=== PATIENT | female | born 1965 | race Hispanic/Latino ===

== ENCOUNTER 2019-09-10 10:45 | Emergency (ER) | payer OTHER ==
[~2019-09-10] VITALS: Ht 154.9 cm; Wt 78.0 kg
--- OUTSIDE RECORDS SUMMARY | 2019-09-10 10:48 | XMS REPORT | Encounter Summary ---
Author Organization Unknown Address [address] [place] [id number] Phone [phone] Care Team Providers Care Sweater Operator Name Role Phone Dr. Rashid Neumann 3 [phone] Reason for Visit diabetes; blood pressure Instructions 1. Type 2 diabetes mellitus glipizide 5 mg tablet metformin 1,000 mg tablet HbA1c (hemoglobin A1c), blood 2. Hypertensive disorder hydrochlorothiazide 12.5 mg capsule lisinopril 40 mg tablet CMP, serum or plasma CBC w/ auto diff 3. Hyperlipidemia atorvastatin 40 mg tablet lipid panel, serum TSH, serum or plasma 4. Body mass index 30+ - obesity ndice de masa corporal: instruccione s de cuidado - [body mass index: care instructions] 5. Depression screening learning about depression 6. Nicotine dependence stopping smoking: care instructions advised to quit smoking 7. Immunization Adacel (Tdap Adolesn/Adult)(PF)2 Lf-(2 .5-5-3-5)-5 Lf/0.5 mL IM syringe Pneumovax 23 25 mcg/0.5 mL injection s yringe Discussion Note: None recorded. Plan of Care Reminders Provider Appointments Est Patient 08/14/2018 1:45PM Rashid Bowden MD Lab HbA1C (Hemoglobin a1C), Blood 07/31/2018 [facility] Laboratory CMP, Serum or Plasma 07/31/2018 [facility] CBC W/ Auto Diff 07/31/2018 [facility] Lipid Panel, Serum 07/31/2018 [facility] TSH, Serum or Plasma 07/31/2018 [facility] Referral None recorded. Procedures None recorded. Surgeries None recorded. Imaging None recorded. Medications Name Start Date atorvastatin 40 mg tablet Take 1 tablet every day by oral route. glipizide 5 mg tablet Take 1 tablet twice a day by oral route. hydrochlorothiazide 12.5 mg capsule Take 1 capsule every day by oral route. lisinopril 40 mg tablet Take 1 tablet every day by oral route. metformin 1,000 mg tablet Take 1 tablet twice a day by oral route. Medications Administered None recorded. Vitals Height Weight BMI Blood Pressure 5 ft 1 in 188.6 lbs 35.6 kg/m2 (1) 140/80 mm[H g] (2) 142/85 mm[Hg] Lab Results None recorded. Allergies Code Code System Name Reaction Severity Status Onset NKDA Problems Name Status Onset Date Source Diabetes Mellitus Active 07/31/2018 Hyperlipidemia Active 07/31/2018 Hypertensive Disorder Active 07/31/2018 Procedures Date Name Performed by Section Information not avai lable Vaccine List Vaccine Type pneumococcal polysaccharide PPV23 07/31/20180.5 mL Tdap 07/31/20180.5 mL Social History Smoking Status Light Tobacco Smoker (1 PPW) Past Encounters 07/31/2018 Type 2 Diabetes Mellitus; Hypertensive Disorder; Hyperlipidemia; Body Mass Index 30+ - Obesity; Depression Screening; Nicotine Dependence; Immunization Rashid Bowden MD: [id number] [place] [address], Ph. History of Present Illness Note:<div>Coming to establish care. Hx of HTN, DM II and HLD. Needs refills. Compliant with meds. Non compliant with diet or exercise. Glucose readings at home 150s-170s fasting. Not checking BPs at home. No side effects with meds. No new concerns.</div> Review of Systems Comprehensive General Adult ROS Reported By: Patient Eyes: Eyes: no vision change Cardiovascular: Cardiovascular: no chest candida n, no palpitations, no lightheadedness Respiratory: Respiratory: no cough, no wh eezing, no shortness of breath Gastrointestinal: Gastrointestinal: no abdomin al pain, no nausea, no vomiting, no constipation, no diarrhea Musculoskeletal: Musculoskeletal: no muscle a ches, no swelling in the extremities Neurologic: Neurologic: no loss of consc iousness, no headaches Psychiatric: Psych: no depression, no alc ohol abuse, no anxiety, no suicidal thoughts Physical Exam General Adult Exam (male) Reported By: Patient Constitutional: General Appearance: healthy- appearing, obese. Level of Distress: NAD. Ambulation: ambulating normally Psychiatric: Insight: good judgement. Men raquel Status: active and alert, normal mood, normal affect. Orientation: to time, to place, to person. Memory: recent memory normal, remote memory normal Eyes: Lids and Conjunctivae: non-i njected, no discharge ENMT: Nose: no sinus tenderness. L ips, Teeth, and Gums: no mouth or lip ulcers. Oropharynx: moist mucous membranes Neck: Neck: supple, trachea midlin e. Thyroid: no enlargement, non-tender Lungs: Auscultation: breath sounds normal Cardiovascular: Heart Auscultation: RRR, nor mal S1, normal S2, no murmurs. Neck vessels: no carotid bruits. Pulses including femoral / pedal: normal throughout Musculoskeletal:: Motor Strength and Tone: nor mal, normal tone. Joints, Bones, and Muscles: normal movement of all extremities. Extremities: no edema Neurologic: Gait and Station: normal gai t. Cranial Nerves: grossly intact Skin: Inspection and palpation: no rash, no lesions
--- OUTSIDE RECORDS SUMMARY | 2019-09-10 10:48 | XMS REPORT ---
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 Role Phone Unavailable Unavailable Payers Payer Name Policy Type Policy Number Effective Date Expiration D ate Problems Condition Name Condition Details Condition Category Status Onset Date Resolution Date Last Treatment Date Treating Clinician Comments Diabetes mellitus Diabetes Mellitus Problem Active 2018-07-31 00:00:00 Hyperlipidemia Hyperlipidemia Problem Active 2018-07-31 00:00:00 Hypertensive disorder Hypertensive Disorder Problem Active 201 01-05-29 00:00:00 Allergies, Adverse Reactions, Alerts Allergy Name Allergy Type Status Severity Reaction(s) Onset Date Inacti ve Date Treating Clinician Comments No Known Allergies DA Active U 2018-07-28 00:00:00 No Known Allergies DA Active U 2018-06-30 00:00:00 No Known Allergies DA Active U 2015-04-19 00:00:00 Medications Ordered Medication Name Filled Medication Name Start Date Stop Da te Current Medication? Ordering Clinician Indication Dosage Frequency Signature (SIG) Comments Components aspirin 81 mg tablet,delayed release Erick e 1 tablet every day by oral route as directed for 90 days. aspirin 81 mg tablet,delayed release Erick e 1 tablet every day by oral route as directed for 90 days. No aspirin 81 mg tablet,delayed release Take 1 tablet every day by oral route as directed for 90 days. atorvastatin 40 mg tablet Take 1 tablet every day by o ral route for 90 days. atorvastatin 40 mg tablet Take 1 tablet every day by oral route for 90 days. No 1 Q1D atorvastatin 4 0 mg tablet Take 1 tablet every day by oral route for 90 days. Basaglar KwikPen U-100 Insulin 100 unit/ mL (3 mL) subcutaneous Inject 25 units every day by subcutaneous route in the morning for 90 days. Basaglar KwikPen U- 100 Insulin 100 unit/mL (3 mL) subcutaneous Inject 25 units every day by subcutaneous route in the morning for 90 days. No 25unit(s) Q1D Awais Schultz U-100 Insulin 100 unit/mL (3 mL) subcutaneous Inject 25 units every day by subcutaneous route in the morning for 90 days. bupropion HCl 150 mg tablet,12 hr sustai jean-pierre-release(smoking deterrent) Take 1 tablet twice a day by oral route for 30 days. one tablet by mouth every morning for 3 days, then one talbet by mouth twice a day bupropion HCl 150 mg tablet,12 hr sustained-release(smoking deterrent) Take 1 tablet twice a day by oral route for 30 days. one tablet by mouth every morning for 3 days, then one talbet by mouth twice a day No 1 BID buprop ion HCl 150 mg tablet,12 hr sustained- release(smoking deterrent) Take 1 tablet twice a day by oral route for 30 days. one tablet by mouth every morning for 3 days, then one talbet by mouth twice a day Easy Touch 31 gauge x 5/16" needle CINTIA INDICADO (LAST S 100 DAYS) Easy Touch 31 gauge x 5/16" needle CINTIA INDICADO (LASTS 100 DAYS) No Easy Touch 31 gauge x 5/16" needle CINTIA INDICADO (LASTS 100 DAYS) glipizide 5 mg tablet Take 1 tablet twice a day by ora l route for 90 days. glipizide 5 mg tablet Take 1 tablet twice a day by oral route for 90 days. No 1 BID glipizide 5 mg tablet Take 1 tablet twice a day by oral route for 90 days. hydrochlorothiazide 12.5 mg capsule Take 1 capsule jason ry day by oral route. hydrochlorothiazide 12.5 mg capsule Take 1 capsule every day by oral route. No 1capsule(s) Q1D hydrochlorothia zide 12.5 mg capsule Take 1 capsule every day by oral route. lisinopril 40 mg tablet Take 1 tablet every day by ora l route. lisinopril 40 mg tablet Take 1 tablet every day by oral route. No 1 Q1D lisinopril 40 mg tablet Take 1 tablet every day by oral route. meloxicam 15 mg tablet Take 1 tablet jason ry day by oral route as needed for 30 days. meloxicam 15 mg tablet Take 1 tablet jason ry day by oral route as needed for 30 days. No 1 Q1D meloxicam 15 mg tablet Take 1 tablet every day by oral route as needed for 30 days. metformin 1,000 mg tablet Take 1 tablet twice a day by oral route for 90 days. metformin 1,000 mg tablet Take 1 tablet twice a day by oral route for 90 days. No 1 BID metformin 1,000 mg tablet Take 1 tablet twice a day by oral route for 90 days. Immunizations Ordered Immunization Name Filled Immunization Name Date Sta tus Comments influenza, injectable, quadrivalent, preservative free influenza, injectable, quadrivalent, preservative free 2019-05-25 19:04:00 Completed pneumococcal polysaccharide PPV23 pneumococcal polysaccharid e PPV23 2018-07-31 16:06:00 Completed Tdap Tdap 2018-07-31 16:06:00 Completed Vital Signs Vital Name Observation Time Observation Value Comments BP Diastolic 2019-09-07 00:00:00 96 mm[Hg] Height 2019-09-07 00:00:00 61 [in_i] BP Systolic 2019-09-07 00:00:00 148 mm[Hg] Body Weight 2019-09-07 00:00:00 172.6 [lb_av] Height 2019-09-06 00:00:00 61 [in_i] BP Diastolic 2019-07-07 00:00:00 84 mm[Hg] Height 2019-07-07 00:00:00 61 [in_i] BP Systolic 2019-07-07 00:00:00 118 mm[Hg] Body Weight 2019-07-07 00:00:00 181 [lb_av] BP Diastolic 2019-05-25 00:00:00 110 mm[Hg] Height 2019-05-25 00:00:00 61 [in_i] BP Systolic 2019-05-25 00:00:00 165 mm[Hg] Body Weight 2019-05-25 00:00:00 184 [lb_av] BP Diastolic 2018-11-11 00:00:00 104 mm[Hg] Height 2018-11-11 00:00:00 61 [in_i] BP Systolic 2018-11-11 00:00:00 151 mm[Hg] Body Weight 2018-11-11 00:00:00 180.6 [lb_av] BP Diastolic 2018-10-29 00:00:00 94 mm[Hg] Height 2018-10-29 00:00:00 61 [in_i] BP Systolic 2018-10-29 00:00:00 159 mm[Hg] Body Weight 2018-10-29 00:00:00 184 [lb_av] BP Diastolic 2018-08-14 00:00:00 82 mm[Hg] Height 2018-08-14 00:00:00 61 [in_i] BP Systolic 2018-08-14 00:00:00 134 mm[Hg] Body Weight 2018-08-14 00:00:00 183.6 [lb_av] BP Diastolic 2018-07-31 00:00:00 80 mm[Hg] Height 2018-07-31 00:00:00 61 [in_i] BP Systolic 2018-07-31 00:00:00 140 mm[Hg] Body Weight 2018-07-31 00:00:00 188.6 [lb_av] Procedures and Interventions Procedure Date / Time Performed Performing Clinici an US, lower extremity 2019-05-25 00:00:00 US, lower extremity 2018-11-11 00:00:00 MAMMO, screening, digital, bilateral 2018-10-29 00:00:00 MAMMO, screening, digital, bilateral 2018-08-14 00:00:00 Section Encounters Start Date/Time End Date/Time Encounter Type Admission Type [facility] Care Department Encounter ID 2019-09-07 00:00:00 2019-09-07 00:00:00 Margarita Castaneda INSURANCE SALESMAN: [address] Grimaldofl, [address] [address], Ph. [facility] [place] [id number] 00:00:00 2019-09-06 00:00:00 Margarita Castaneda INSURANCE SALESMAN: [address] Amy Horne, [address] [address], Ph. [facility] ([facility]) [id number] 00:00:00 2019-07-07 00:00:00 Margarita Castaneda INSURANCE SALESMAN: [address] [place] [address], Ph. [facility] [id number] 2019-05-25 00:00:00 2019-05-25 00:00:00 Lorena Ward MD: [address] [place] [address], Ph. [facility] [id number] 2018-11-11 00:00:00 2018-11-11 00:00:00 Rashid chan MD: [address] [place] [address], Ph. [facility] [id number] 2018-10-29 00:00:00 2018-10-29 00:00:00 Rashid chan MD: [address] [place] [address], Ph. [facility] [id number] 2018-08-14 00:00:00 2018-08-14 00:00:00 Rashid chan MD: [address] [place] [address], Ph. [facility] [id number] 2018-07-31 00:00:00 2018-07-31 00:00:00 Rashid chan MD: [address] [place] [address], Ph. [facility] [id number] Results Test Description Test Time Test Comments Text Results Atomic Results Result Comments GLUBED 2018-07-30 10:57:00 GLUBED (test code = GLUBED) 255 mg/dL 74-106 [facility] [id number] 17:21:00* Test Item Value Reference Range Comments GLUBED (test code = GLUBED) 359 mg/dL 74-106 [facility]f ormed by certified [facility] [id number] 16:32:00* Test Item Value Reference Range Comments GLUBED (test code = GLUBED) 435 mg/dL 74-106 Perf ormed by certified petroleum terminal plant operator at [facility] BASIC METABOLIC [id number] 11:44:00* Test Item Value Reference Range Comments SODIUM (test code = NA) 137 mmol/L 136-145 POTASSIUM (test code = K) 3.7 mmol/L 3.5-5.1 CHLORIDE (test code = CL) 103.0 mmol/L 98-107 CARBON DIOXIDE (test code = CO2) 23.0 mmol/L 21-32 ANION GAP (test code = GAP) 14.7 10-20 GLUCOSE (test code = GLU) 351 mg/dL 74-106 BLOOD UREA NITROGEN (test code = BUN) 33 mg/dL 7-18 GLOMERULAR FILTRATION RATE (test code = GFR) 47 mL/min >=6 0 Estimated GFR by using Modified MDRD formula.Chronic kidney disease is defined as either kidney damageor GFR <60 mL/min/1.73 m2 for >3 months. CREATININE (test code = CREAT) 1.20 mg/dL 0.55-1.02 * *Note change in reference range due to change in reagent. BUN/CREATININE RATIO (test code = BUN/CREA) 27.5 10-2 0 CALCIUM (test code = CA) 9.5 mg/dL 8.5-10.1 HEPATIC FUNCTION [id number] 11:44:00* Test Item Value Reference Range Comments TOTAL PROTEIN (test code = PROT) 8.0 gram/dL 6.4-8.2 ALBUMIN (test code = ALB) 3.6 g/dL 3.4-5.0 GLOBULIN (test code = GLOB) 4.4 gram/dL 2.7-4.2 ALBUMIN/GLOBULIN RATIO (test code = A/G) 0.8 0.75-1. 50 BILIRUBIN TOTAL (test code = BILT) 0.60 mg/dL 0.0-1.0 BILIRUBIN DIRECT (test code = BILD) 0.14 mg/dL 0.0-0.20 SGOT/AST (test code = AST) 14 IUnit/L 15-37 SGPT/ALT (test code = ALT) 18 IUnit/L 12-78 ALKALINE PHOSPHATASE TOTAL (test code = ALKP) 85 IUnit/L 45 -117 Note change in reference range due to change in reagent. [id number] 11:44:00* Test Item Value Reference Range Comments TROPONIN-I (test code = TROPI) <0.015 ng/mL 0-0.045 BASIC METABOLIC [id number] 11:33:00* Test Item Value Reference Range Comments SODIUM (test code = NA) 137 mmol/L 136-145 POTASSIUM (test code = K) 3.7 mmol/L 3.5-5.1 CHLORIDE (test code = CL) 103.0 mmol/L 98-107 CARBON DIOXIDE (test code = CO2) mmol/L 21-32 ANION GAP (test code = GAP) 10-20 GLUCOSE (test code = GLU) mg/dL 74-106 BLOOD UREA NITROGEN (test code = BUN) mg/dL 7-18 GLOMERULAR FILTRATION RATE (test code = GFR) mL/min >=6 0 CREATININE (test code = CREAT) mg/dL 0.55-1.02 BUN/CREATININE RATIO (test code = BUN/CREA) 10-2 0 CALCIUM (test code = CA) mg/dL 8.5-10.1 HEPATIC FUNCTION [id number] 11:33:00* Test Item Value Reference Range Comments TOTAL PROTEIN (test code = PROT) gram/dL 6.4-8.2 ALBUMIN (test code = ALB) g/dL 3.4-5.0 GLOBULIN (test code = GLOB) gram/dL 2.7-4.2 ALBUMIN/GLOBULIN RATIO (test code = A/G) 0.75-1. 50 BILIRUBIN TOTAL (test code = BILT) mg/dL 0.0-1.0 BILIRUBIN DIRECT (test code = BILD) mg/dL 0.0-0.20 SGOT/AST (test code = AST) IUnit/L 15-37 SGPT/ALT (test code = ALT) IUnit/L 12-78 ALKALINE PHOSPHATASE TOTAL (test code = ALKP) IUnit/L 45 -117 [id number] 11:33:00* Test Item Value Reference Range Comments TROPONIN-I (test code = TROPI) ng/mL 0-0.045 URINALYSIS [id number] 11:24:00* Test Item Value Reference Range Comments UA COLOR (test code = COLU) LIGHT YELLOW YELLOW UA APPEARANCE (test code = APPU) CLEAR CLEAR UA GLUCOSE DIPSTICK (test code = DGLUU) >=500 mg/dL NEGATIVE UA BILIRUBIN DIPSTICK (test code = BILU) NEGATIVE mg/dL NEGATIV E UA KETONE DIPSTICK (test code = KETU) Negative mg/dL NEGATIVE UA SPECIFIC GRAVITY (test code = SGU) 1.021 1.001-1.03 5 UA BLOOD DIPSTICK (test code = BRENT) Negative NEGATIVE UA PH DIPSTICK (test code = SKYE) 5.0 5.0-8.0 UA PROTEIN DIPSTICK (test code = PROU) Negative mg/dL NEGATIVE UA UROBILINIOGEN DIPSTICK (test code = URO) NEGATIVE mg/dL NEGA TIVE UA NITRITE DIPSTICK (test code = NATHAN) NEGATIVE NEGATIVE UA LEUKOCYTE ESTERASE W REFLEX (test code = LEUUR) NEGATIVE NEGATIVE UA WBC (test code = WBCU) 0-5 #/HPF 0-5 UA RBC (test code = RBCU) 0-2 #/HPF 0-5 UA EPITHELIAL CELLS (test code = EPIU) FEW per HPF FEW UA BACTERIA (test code = BACU) FEW #/HPF NONE UA MUCUS (test code = MUCU) FEW #/LPF FEW Urine Source? Clean CatchURINALYSIS [id number] 11:23:00* Test Item Value Reference Range Comments UA COLOR (test code = COLU) LIGHT YELLOW YELLOW UA APPEARANCE (test code = APPU) CLEAR CLEAR UA GLUCOSE DIPSTICK (test code = DGLUU) >=500 mg/dL NEGATIVE UA BILIRUBIN DIPSTICK (test code = BILU) NEGATIVE mg/dL NEGATIV E UA KETONE DIPSTICK (test code = KETU) Negative mg/dL NEGATIVE UA SPECIFIC GRAVITY (test code = SGU) 1.021 1.001-1.03 5 UA BLOOD DIPSTICK (test code = BRENT) Negative NEGATIVE UA PH DIPSTICK (test code = SKYE) 5.0 5.0-8.0 UA PROTEIN DIPSTICK (test code = PROU) Negative mg/dL NEGATIVE UA UROBILINIOGEN DIPSTICK (test code = URO) NEGATIVE mg/dL NEGA TIVE UA NITRITE DIPSTICK (test code = NATHAN) NEGATIVE NEGATIVE UA LEUKOCYTE ESTERASE W REFLEX (test code = LEUUR) NEGATIVE NEGATIVE UA WBC (test code = WBCU) per HPF 0-5 Urine Source? Clean CatchURINALYSIS [id number] 11:21:00* Test Item Value Reference Range Comments UA COLOR (test code = COLU) LIGHT YELLOW YELLOW UA APPEARANCE (test code = APPU) CLEAR CLEAR UA BILIRUBIN DIPSTICK (test code = BILU) NEGATIVE mg/dL NEGATIV E UA KETONE DIPSTICK (test code = KETU) Negative mg/dL NEGATIVE UA SPECIFIC GRAVITY (test code = SGU) 1.021 1.001-1.03 5 UA BLOOD DIPSTICK (test code = BRENT) Negative NEGATIVE UA PH DIPSTICK (test code = SKYE) 5.0 5.0-8.0 UA PROTEIN DIPSTICK (test code = PROU) Negative mg/dL NEGATIVE UA UROBILINIOGEN DIPSTICK (test code = URO) NEGATIVE mg/dL NEGA TIVE UA NITRITE DIPSTICK (test code = NATHAN) NEGATIVE NEGATIVE UA LEUKOCYTE ESTERASE W REFLEX (test code = LEUUR) NEGATIVE NEGATIVE UA WBC (test code = WBCU) per HPF 0-5 Urine Source? Clean CatchCBC W/O [id number] 11:17:00* Test Item Value Reference Range Comments WHITE BLOOD CELL (test code = WBC) K/mm3 4.5-12.5 RED BLOOD CELL (test code = RBC) mill/mm3 3.7-5.2 HEMOGLOBIN (test code = HGB) 15.5 gram/dL 11.5-15.5 HEMATOCRIT (test code = HCT) % 36.0-46.0 MEAN CELL VOLUME (test code = MCV) fL 80-98 MEAN CELL HGB (test code = MCH) picogram 27.0-33.0 MEAN CELL HGB CONCETRATION (test code = MCHC) gram/dL 33 .0-36.0 RED CELL DISTRIBUTION WIDTH (test code = RDW) % 11 .6-16.2 PLATELET COUNT (test code = PLT) K/mm3 150-450 MEAN PLATELET VOLUME (test code = MPV) fL 6.7-11.0 CBC W/O [id number] 11:17:00* Test Item Value Reference Range Comments WHITE BLOOD CELL (test code = WBC) 9.6 K/mm3 4.5-12.5 RED BLOOD CELL (test code = RBC) 4.99 mill/mm3 3.7-5.2 HEMOGLOBIN (test code = HGB) 15.5 gram/dL 11.5-15.5 HEMATOCRIT (test code = HCT) 48.2 % 36.0-46.0 MEAN CELL VOLUME (test code = MCV) 96.6 fL 80-98 MEAN CELL HGB (test code = MCH) 31.1 picogram 27.0-33.0 MEAN CELL HGB CONCETRATION (test code = MCHC) 32.2 gram/dL 33 .0-36.0 RED CELL DISTRIBUTION WIDTH (test code = RDW) 12.9 % 11 .6-16.2 PLATELET COUNT (test code = PLT) 234 K/mm3 150-450 MEAN PLATELET VOLUME (test code = MPV) 10.1 fL 6.7-11.0 [id number] 22:42:00* Test Item Value Reference Range Comments GLUBED (test code = GLUBED) 398 mg/dL 74-106 Perf ormed by certified petroleum terminal plant operator at [facility] VENOUS BLOOD [id number] 20:40:00* Test Item Value Reference Range Comments VENOUS BLOOD GAS PH (test code = PHV) 7.39 7.30-7.40 VENOUS BLOOD GAS PCO2 (test code = PCO2V) 43.7 mm Hg 39.0-5 1.0 VENOUS BLOOD GAS PO2 (test code = PO2V) < 44.2 mm Hg 30.0-50. 0 VBG HCO3 (test code = HCO3V) 26.0 mmol/L 17.0-30.0 VBG BASE EXCESS (test code = ESPINOZA) 0.8 mmol/L -5.0-5.0 VENOUS BLOOD GAS O2 SAT. (test code = O2SATV) 73 % 94 -98 VENOUS BLOOD GAS FIO2 (test code = FIO2V) 21.0 PT. HGB (test code = PHGBVBG) 15.7 gram/dL 11.5-15.5 VENOUS BLOOD GAS SITE (test code = SITEV) IVC HEMATOCRIT (test code = HCT/VBG) 46 % 42-52 HGB O2 SAT (test code = HBOSAT) 70.7 % 94.00-98.00 CARBOXYHEMOGLOBIN (test code = HOHGBT) 3.2 %totalHg 0.5-1.5 Results called to and read back by Svetlana 20:40 - 06/30/2018; by LAURA METHEMOGLOBIN (test code = METHGB) 0.4 % 0.0-1.50 URINALYSIS [id number] 20:38:00* Test Item Value Reference Range Comments UA COLOR (test code = COLU) STRAW YELLOW UA APPEARANCE (test code = APPU) CLEAR CLEAR UA GLUCOSE DIPSTICK (test code = DGLUU) >=500 mg/dL NEGATIVE UA BILIRUBIN DIPSTICK (test code = BILU) NEGATIVE mg/dL NEGATIV E UA KETONE DIPSTICK (test code = KETU) 5 (Trace) mg/dL NEGATIVE UA SPECIFIC GRAVITY (test code = SGU) 1.026 1.001-1.03 5 UA BLOOD DIPSTICK (test code = BRENT) Negative NEGATIVE UA PH DIPSTICK (test code = SKYE) 6.0 5.0-8.0 UA PROTEIN DIPSTICK (test code = PROU) Negative mg/dL NEGATIVE UA UROBILINIOGEN DIPSTICK (test code = URO) NEGATIVE mg/dL NEGA TIVE UA NITRITE DIPSTICK (test code = NATHAN) NEGATIVE NEGATIVE UA LEUKOCYTE ESTERASE W REFLEX (test code = LEUUR) NEGATIVE NEGATIVE UA WBC (test code = WBCU) 0-5 #/HPF 0-5 UA RBC (test code = RBCU) 0-2 #/HPF 0-5 UA EPITHELIAL CELLS (test code = EPIU) FEW per HPF FEW UA BACTERIA (test code = BACU) NONE SEEN #/HPF NONE Urine Source? Clean Catch- XR CHEST 1 [id number] 19:46:00 FAX: Karen Alejo MD [place]: B St: REG Name: GLENNA GRIFFITH [facility] : 10/12/18 68 Age/S: 52/F [place] Unit #: [id number] Loc: [place] [address] Phys: Karen Alejo MD Acct: [id number] Dis Date: Status: REG ER PHONE #: [phone] Exam Date: 06/30/2018 1840 FAX #: [phone] Reason: CHEST PAIN EXAMS: CPT CODE: [id number] XR CHEST 1 V [id number] REASON FOR EXAM: CHEST JAYESH N Exam Order Date: 06/30/2018 6:32 PM Ordering M.D.: Karen Aljeo MD PROCEDURE: - XR CHEST 1 V COMPARIS ON: AP chest x-ray April 19, 2015 FINDINGS: The lungs a re clear. There is no pleural effusion. Cardiomediastinal silhouette is n ormal in size for technique. Pulmonary vasculature is within normal limit s Degenerative changes are seen throughout the visualized spine. Vis ualized upper abdomen is grossly unremarkable. IMPRESSIO N: No acute cardiopulmonary process. at 1946 Reported and signed by: Bettie Benito MD CC: Karen Alejo MD Technologist: Ignacia Rodriguez Trnscrd Date/Time/By: 06/30/2018 (1945) : By: [email or web address] Orig Print D /T: S: 06/30/2018 (1948) PAGE 1 S igned Report BASIC METABOLIC [id number] 19:06:00* Test Item Value Reference Range Comments SODIUM (test code = NA) 132 mmol/L 136-145 POTASSIUM (test code = K) 4.5 mmol/L 3.5-5.1 CHLORIDE (test code = CL) 96.0 mmol/L 98-107 CARBON DIOXIDE (test code = CO2) 29.0 mmol/L 21-32 ANION GAP (test code = GAP) 11.5 10-20 GLUCOSE (test code = GLU) 642 mg/dL 74-106 Result s called to by V.LAB.SPR 06/30/18 1906Critical results verified and read back by Nurse? Y BLOOD UREA NITROGEN (test code = BUN) 28 mg/dL 7-18 GLOMERULAR FILTRATION RATE (test code = GFR) 40 mL/min >=6 0 Estimated GFR by using Modified MDRD formula.Chronic kidney disease is defined as either kidney damageor GFR <60 mL/min/1.73 m2 for >3 months. CREATININE (test code = CREAT) 1.40 mg/dL 0.55-1.02 * *Note change in reference range due to change in reagent. BUN/CREATININE RATIO (test code = BUN/CREA) 20.0 10-2 0 CALCIUM (test code = CA) 9.0 mg/dL 8.5-10.1 [id number] 19:06:00* Test Item Value Reference Range Comments TROPONIN-I (test code = TROPI) <0.015 ng/mL 0-0.045 BASIC METABOLIC [id number] 18:57:00* Test Item Value Reference Range Comments SODIUM (test code = NA) 132 mmol/L 136-145 POTASSIUM (test code = K) 4.5 mmol/L 3.5-5.1 CHLORIDE (test code = CL) 96.0 mmol/L 98-107 CARBON DIOXIDE (test code = CO2) 29.0 mmol/L 21-32 ANION GAP (test code = GAP) 11.5 10-20 GLUCOSE (test code = GLU) mg/dL 74-106 BLOOD UREA NITROGEN (test code = BUN) 28 mg/dL 7-18 GLOMERULAR FILTRATION RATE (test code = GFR) 40 mL/min >=6 0 Estimated GFR by using Modified MDRD formula.Chronic kidney disease is defined as either kidney damageor GFR <60 mL/min/1.73 m2 for >3 months. CREATININE (test code = CREAT) 1.40 mg/dL 0.55-1.02 * *Note change in reference range due to change in reagent. BUN/CREATININE RATIO (test code = BUN/CREA) 20.0 10-2 0 CALCIUM (test code = CA) 9.0 mg/dL 8.5-10.1 [id number] 18:57:00* Test Item Value Reference Range Comments TROPONIN-I (test code = TROPI) <0.015 ng/mL 0-0.045 CBC W/O [id number] 18:47:00* Test Item Value Reference Range Comments WHITE BLOOD CELL (test code = WBC) 8.3 K/mm3 4.5-12.5 RED BLOOD CELL (test code = RBC) 4.81 mill/mm3 3.7-5.2 HEMOGLOBIN (test code = HGB) 15.6 gram/dL 11.5-15.5 HEMATOCRIT (test code = HCT) 45.5 % 36.0-46.0 MEAN CELL VOLUME (test code = MCV) 94.6 fL 80-98 MEAN CELL HGB (test code = MCH) 32.4 picogram 27.0-33.0 MEAN CELL HGB CONCETRATION (test code = MCHC) 34.3 gram/dL 33 .0-36.0 RED CELL DISTRIBUTION WIDTH (test code = RDW) 12.2 % 11 .6-16.2 PLATELET COUNT (test code = PLT) 268 K/mm3 150-450 MEAN PLATELET VOLUME (test code = MPV) 11.1 fL 6.7-11.0 CBC W/O [id number] 18:46:00* Test Item Value Reference Range Comments WHITE BLOOD CELL (test code = WBC) K/mm3 4.5-12.5 RED BLOOD CELL (test code = RBC) mill/mm3 3.7-5.2 HEMOGLOBIN (test code = HGB) gram/dL 11.5-15.5 HEMATOCRIT (test code = HCT) 45.5 % 36.0-46.0 MEAN CELL VOLUME (test code = MCV) fL 80-98 MEAN CELL HGB (test code = MCH) picogram 27.0-33.0 MEAN CELL HGB CONCETRATION (test code = MCHC) gram/dL 33 .0-36.0 RED CELL DISTRIBUTION WIDTH (test code = RDW) % 11 .6-16.2 PLATELET COUNT (test code = PLT) K/mm3 150-450 MEAN PLATELET VOLUME (test code = MPV) fL 6.7-11.0 BASIC METABOLIC [id number] 18:45:00* Test Item Value Reference Range Comments SODIUM (test code = NA) 132 mmol/L 136-145 POTASSIUM (test code = K) 4.5 mmol/L 3.5-5.1 CHLORIDE (test code = CL) 96.0 mmol/L 98-107 CARBON DIOXIDE (test code = CO2) mmol/L 21-32 ANION GAP (test code = GAP) 10-20 GLUCOSE (test code = GLU) mg/dL 74-106 BLOOD UREA NITROGEN (test code = BUN) mg/dL 7-18 GLOMERULAR FILTRATION RATE (test code = GFR) mL/min >=6 0 CREATININE (test code = CREAT) mg/dL 0.55-1.02 BUN/CREATININE RATIO (test code = BUN/CREA) 10-2 0 CALCIUM (test code = CA) mg/dL 8.5-10.1 [id number] 18:45:00* Test Item Value Reference Range Comments TROPONIN-I (test code = TROPI) ng/mL 0-0.045
--- OUTSIDE RECORDS SUMMARY | 2019-09-10 10:48 | XMS REPORT | Encounter Summary ---
Author Organization Unknown Address [address] [place] [id number] Phone [phone] Care Team Providers Care Wire Rigger Name Role Phone Dr. Rashid Neumann 3 [phone] Reason for Visit diabetic foot exam; lab follow-up Instructions 1. Diabetes mellitus diabetic ophthalmology referral - [facility] SPEAKING PLEASE CALL PATIENT AND SCHEDULE HER AN APPOINTMENT. PLEASE FAX NOTES TO [phone]. microalbumin:creatinine ratio, urine Basaglar KwikPen U-100 Insulin 100 uni t/mL (3 mL) subcutaneous 2. Hyperlipidemia colesterol alto: instrucciones de cuid ado - [high cholesterol: care instructions] aspirin 81 mg tablet,delayed release 3. Body mass index 30+ - obesity aprenda acerca del peso saludable - [l earning about healthy weight] ndice de masa corporal: instruccione s de cuidado - [body mass index: care instructions] 4. Screening for malignant neoplasm of c olon colonoscopy referral - KHMER SPEAKSINTIA Tucker PLEASE CALL PATIENT AND SCHEDULE HER AN APPOINTMENT. PLEASE FAX NOTES TO [phone]. fecal occult blood, stool 5. Screening for malignant neoplasm of b reast MAMMO, screening, digital, bilateral - K[facility]ER SPEAKING PLEASE CALL PATIENT AND SCHEDULE HER AN APPOINTMENT. PLEASE FAX RESULTS TO [phone]. 6. Benign essential hypertension Discussion Note: None recorded. Plan of Care Reminders Provider Appointments Est Patient 09/17/2018 1:30PM Rashid Bowden MD Lab Fecal Occult Blood, Stool 08/14/2018 [facility] Laboratory Microalbumin:creatinine Ratio, Urine 08/14/2018 [facility] Laboratory Referral Colonoscopy Referral 08/14/2018 [facility] Gastroenterology Diabetic Ophthalmology Referral 08/14/2018 Betzy Cruz MD Procedures None recorded. Surgeries None recorded. Imaging MAMMO, Screening, Digital, Bilateral 08/14/2018 [facility] (Imaging Scheduling) Medications Name Start Date aspirin 81 mg tablet,delayed release Take 1 tablet every day by oral route as directed for 30 days. atorvastatin 40 mg tablet Take 1 tablet every day by oral route. Basaglar MohitPen U-100 Insulin 100 unit/ mL (3 mL) subcutaneous Inject 15 units every day by subcutaneous route as directed for 30 days. glipizide 5 mg tablet Take 1 [...] BMI Blood Pressure 5 ft 1 in 183.6 lbs 34.7 kg/m2 134/82 mm[Hg] Lab Results Date Name Specimen Result Interpretation Description Value Range Status Address 07/31/2018 Lipid Panel, Serum High Cholesterol, Tota l 215 mg/dL <200 mg/dL [facility]: [address] [place] [address] [place] Low HDL Cholesterol 44 mg/dL >50 mg/dL [place] Laboratory: [address] [place] [address] [place] High Triglycerides 349 mg/dL <150 mg/dL [place] Laboratory: [address] [place] [address] [place] High LDL-cholesterol 121 mg/dL (calc) [facility] Laboratory: [address] [place] [address] [place] Normal Chol/hdlc Ratio 4.9 (calc) <5.0 (clark c) Final [facility] Laboratory: [address] [place] [address] [place] High Non HDL Cholesterol 171 mg/dL (calc) <130 mg/dL (calc) Final [facility] Laboratory: [address] [place] 07/31/2018 HbA1C (Hemoglobin a1C), Blood High Hemoglobin a1C 13.4 % of total HGB <5.7 % of total HGB [facility] [address] [place] [address] [place] EAG (mg/dL) 338 (calc) [facility] Laboratory: [address] [place] [address] [place] EAG (mmol/L) 18.7 (calc) [facility] Laboratory: [address] 07/31/2018 CBC W/ Auto Diff Normal White Blood Cell Co unt 7.3 thousand/uL 3.8-10.8 thousand/uL Final [facility]: [address] Normal Red Blood Cell Count 4.37 mill ion/uL 3.80-5.10 million/uL Final [facility] Laboratory: [address] [place] Normal Hemoglobin 14.3 g/dL 11.7-15.5 g/dL Final [facility] Laboratory: [address] [place] Normal Hematocrit 41.8 % 35.0-45.0 % Final [facility] Laboratory: [address] [place] Normal Mcv 95.7 fL 80.0-100.0 fL Final [facility] Laboratory: [address] [place] Normal Mch 32.7 pg 27.0-33.0 pg Final [facility] Laboratory: [address] [place] Normal Mchc 34.2 g/dL 32.0-36.0 g/dL Final [facility] Laboratory: [address] [place] Normal Rdw 12.2 % 11.0-15.0 % Final [facility] Laboratory: [address] [place] Normal Platelet Count 227 thousand/uL 140-4 00 thousand/uL Final [facility] Laboratory: [address] [place] Normal Mpv 10.8 fL 7.5-12.5 fL Final [facility] Laboratory: [address] [place] Normal Absolute Neutrophils 4592 cells/uL 1 500-7800 cells/uL Final [facility] Laboratory: [address] [place] Normal Absolute Lymphocytes 2227 cells/uL 8 50-3900 cells/uL Final [facility] Laboratory: [address] [place] Normal Absolute Monocytes 277 cells/uL 200- 950 cells/uL Final [facility] Laboratory: [address] [place] Normal Absolute Eosinophils 168 cells/uL 15 -500 cells/uL Final [facility] Laboratory: [address] [place] Normal Absolute Basophils 37 cells/uL 0-200 cells/uL Final [facility] Laboratory: [address] [place] Normal Neutrophils 62.9 % Final [facility] Laboratory: [address], [place] Normal Lymphocytes 30.5 % Final [facility] Laboratory: [address], [place] Normal Monocytes 3.8 % Final [facility] Laboratory: [address], [place] Normal Eosinophils 2.3 % Final [facility] Laboratory: [address], [place] Normal Basophils 0.5 % Final [facility] Laboratory: [address], [place] 07/31/2018 CMP, Serum or Plasma High Glucose 292 mg/dL 65-99 mg/dL Final [facility] Laboratory: [address], [place] Normal Urea Nitrogen (BUN) 22 mg/dL 7-25 mg /dL Final [facility] Laboratory: [address] [place] [address] High Creatinine 1.07 mg/dL 0.50-1.05 mg/d L Final [facility] Laboratory: [address] Normal eGFR Non-afr. Haitian 60 mL/m in/1.73m2 > or = 60 mL/min/1.73m2 Final [facility]: [address] [facility] [place] Normal eGFR 70 mL/mi n/1.73m2 > or = 60 mL/min/1.73m2 Final [facility] Laboratory: [address] [place] [address] Normal BUN/creatinine Ratio 21 (calc) 6-22 (calc) Final [facility]: [address] [facility] Normal Sodium 138 mmol/L 135-146 mmol/L [facility] Laboratory: [address] Normal Potassium 4.4 mmol/L 3.5-5.3 mmol/L Final [facility] Laboratory: [address] [facility] Normal Chloride 101 mmol/L 98-110 mmol/L [facility] Laboratory: [address] [facility] Normal Carbon Dioxide 27 mmol/L 20-32 mmol/ L Final [facility] Laboratory: [address] Normal Calcium 10.0 mg/dL 8.6-10.4 mg/dL [facility] Laboratory: [address] [place] Normal Protein, Total 6.7 g/dL 6.1-8.1 g/dL Final [facility] Laboratory: [address] [place] Normal Albumin 3.9 g/dL 3.6-5.1 g/dL Final [facility] Laboratory: [address] [place] Normal Globulin 2.8 g/dL (calc) 1.9-3.7 g/d L (calc) Final [facility] Laboratory: [address] [facility] Normal Albumin/globulin Ratio 1.4 (calc) 1. 0-2.5 (calc) Final [facility] Laboratory: [address] [place] Normal Bilirubin, Total 0.4 mg/dL 0.2-1.2 m g/dL Final [facility] Laboratory: [address] [facility] Normal Alkaline Phosphatase 78 U/L 33-130 U /L Final [facility] Laboratory: [address] [facility] Normal Ast 10 U/L 10-35 U/L Final [facility] Laboratory: [address] [facility] Normal Alt 9 U/L 6-29 U/L Final [facility] Laboratory: [address] [facility] 07/31/2018 TSH, Serum or Plasma Normal Tsh 1.25 mIU/L Final [facility] Laboratory: [address] [facility] Allergies Code Code System Name Reaction Severity Status Onset NKDA Problems Name Status Onset Date Source Diabetes Mellitus Active 07/31/2018 Hyperlipidemia Active 07/31/2018 Hypertensive Disorder Active 07/31/2018 Procedures Date Name Performed by Section Information not avai lable 08/14/2018 MAMMO, Screening, Digital, Bilateral Pat [facility] (Imaging Scheduling) [address] [place] [address] (Work Place) Vaccine List Vaccine Type pneumococcal polysaccharide PPV23 07/31/20180.5 mL Tdap 07/31/20180.5 mL Social History Smoking Status Light Tobacco Smoker (1 PPW) Past Encounters 08/14/2018 Diabetes Mellitus; Hyperlipidemia; Body Mass Index 30+ - Obesity; Screening for Malignant Neoplasm of Colon; Screening for Malignant Neoplasm of Breast; Benign Essential Hypertension Rashid Bowden MD: [address] [place] [address], Ph. 07/31/2018 Type 2 Diabetes Mellitus; Hypertensive Disorder; Hyperlipidemia; Body Mass Index 30+ - Obesity; Depression Screening; Nicotine Dependence; Immunization Rashid Bowden MD: [address] [place] [address], Ph. History of Present Illness Note:Coming to discuss lab results. Non compliant with meds (pt forgets to take the metformin, glipizide and atorvastatin most of the days). Non compliant with diet or exercise. Review of Systems Comprehensive General Adult ROS [...]
--- OUTSIDE RECORDS SUMMARY | 2019-09-10 10:49 | XMS REPORT | Encounter Summary ---
Author Organization Unknown Address [address] [place] [address] Phone [phone] Care Team Providers Care Link Cutter Name Role Phone Dr. Rashid Neumann 3 [phone] Betzy Cruz MD 111 [phone] Reason for Visit lab follow-up; cough; mass Instructions 1. Diabetes mellitus microalbumin:creatinine ratio, urine 2. Hyperlipidemia colesterol alto: instrucciones de cuid ado - [high cholesterol: care instructions] 3. Benign essential hypertension 4. Localized swelling, mass and lump, lo wer limb US, lower extremity - soft tissue u/s. *Please call the patient and schedule* 5. Upper respiratory infection Zithromax Z-Zack 250 mg tablet Cheratussin AC 10 mg-100 mg/5 mL oral liquid 6. Body mass index 30+ - obesity aprenda acerca del peso saludable - [l earning about healthy weight] ndice de masa corporal: instruccione s de cuidado - [body mass index: care instructions] Discussion Note: None recorded. Plan of Care Reminders Provider Appointments Est Patient 02/11/2019 11:15AM Rashid Bowden MD Lab Microalbumin:creatinine Ratio, Urine 11/11/2018 [facility] Laboratory Referral None recorded. Procedures None recorded. Surgeries None recorded. Imaging US, Lower Extremity 11/11/2018 [facility] (Imaging) Medications Name Start Date aspirin 81 mg tablet,delayed release Take 1 tablet every day by oral route as directed for 90 days. atorvastatin 40 mg tablet Take 1 tablet every day by oral route. Basaglar KwikPen U-100 Insulin 100 unit/ mL (3 mL) subcutaneous Inject 15 units every day by subcutaneous route as directed for 30 days. Cheratussin AC 10 mg-100 mg/5 mL oral li quid Take 10 mL every 6-8 hours by oral route as needed for 5 days. glipizide 5 mg tablet Take 1 [...] tablet twice a day by oral route. Zithromax Z-Zack 250 mg tablet TAKE 2 TABLETS (500 MG) BY ORAL ROUTE ONCE DAILY FOR 1 DAY THEN 1 TABLET (250 MG) BY ORAL ROUTE ONCE DAILY FOR 4 DAYS Medications Administered None recorded. Vitals Height Weight BMI Blood Pressure 5 ft 1 in 180.6 lbs 34.1 kg/m2 (1) 151/104 mm[ Hg] (2) 138/95 mm[Hg] Lab Results Date Name Specimen Result Interpretation Description Value Range Status Address 10/29/2018 CMP, Serum or Plasma Alt 8 U/L 0-55 U /L [facility] Laboratory: [address] Ast 11 U/L 5-34 U/L Final [facility] Laboratory: [address] Bun 16.6 mg/dL 9.8-25.0 mg/dL Final [facility] Laboratory: [address] Alk Phos 103 unit/L 40-150 unit/L Fi nal [facility] Laboratory: [address] [facility] [place] High Glucose 348 mg/dL 70-99 mg/dL [facility] Laboratory: [address] [place] [address] Albumin 3.4 g/dL 3.4-5.1 g/dL Final [facility] Laboratory: [address] [place] [address] Creatinine 1.03 mg/dL 0.57-1.11 mg/d L Final [facility] Laboratory: [address] [facility] [place] ABNORMAL eGFR Non- 56 mL/m in/1.73m2 Final [facility] Laboratory: [address] [place] [address] [place] Total Bilirubin 0.4 mg/dL 0.2-1.2 mg /dL [facility] Laboratory: [address] [place] [address] eGFR - >60 mL/min/1 .73m2 [facility] Laboratory: [address] [place] [address] Sodium 137 mEq/L 135-145 mEq/L [facility] Laboratory: [address] [place] [address], [place] Potassium 3.7 mEq/L 3.5-5.1 mEq/L [facility] Laboratory: [address] [place] [address], [place] Chloride 104 mmol/L 98-110 mmol/L [facility] Laboratory: [address] [place] [address], [place] Total Protein 6.8 g/dL 6.1-8.2 g/dL [facility] Laboratory: [address] [place] [address], [place] Calcium 9.1 mg/dL 8.6-10.4 mg/dL Fin [facility] Laboratory: [address] [place] [address], [place] Co2 22.3 mmol/L 20.0-32.0 mmol/L [facility] Laboratory: [address] [place] [address], [place] Anion Gap 11 calc Final [facility] Laboratory: [address] [place] [address], [place] 10/29/2018 Lipid Panel, Serum Low Hdl 36 mg/dL 50-0 m g/dL Final [facility] Laboratory: [address] High Triglyceride 411 mg/dL 0-150 mg/dL [facility] Laboratory: [address] VLDL (Calculated) 82 mg/dL [facility] Laboratory: [address] cholesterol/HDL Ratio 5.4 mg/dL [facility] Laboratory: [address] [place] [address], [place] non-HDL Cholesterol (Calculated) 157 mg/dL 0-160 mg/dL [facility] Laboratory: [address] Cholesterol 193 mg/dL 0-200 mg/dL [facility] Laboratory: [address] [place] [address], [place] Low LDL (Calculated) see comment mg/dL 0 -130 mg/dL Final [facility] Laboratory: [address] [place], [place] 10/29/2018 HbA1C (Hemoglobin a1C), Blood High A1C W/ eag 12.4 % 1.0-5.7 % [facility] Laboratory: [address] [place] [address], [place] Average Blood Glucose 309 mg/dL [facility] Laboratory: [address] [place] [address], [place] Allergies Code Code System Name Reaction Severity Status Onset NKDA Problems Name Status Onset Date Source Diabetes Mellitus Active 07/31/2018 Hyperlipidemia Active 07/31/2018 Hypertensive Disorder Active 07/31/2018 Procedures Date Name Performed by Section Information not avai lable 10/29/2018 MAMMO, Screening, Digital, Bilateral [facility] [place] [address] [place] [address] (Work Place) 11/11/2018 [place], Lower Extremity [facility] [address] (Imaging) [address] [place] [address] (Work Place) Vaccine List Vaccine Type pneumococcal polysaccharide PPV23 07/31/20180.5 mL Tdap 07/31/20180.5 mL Social History Smoking Status Light Tobacco Smoker (1 PPW) Past Encounters 11/11/2018 Diabetes Mellitus; Hyperlipidemia; Benign Essential Hypertension; Localized Swelling, Mass and Lump, Lower Limb; Upper Respiratory Infection; Body Mass Index 30+ - Obesity Rashid Bowden MD: [address] [place] [address], Ph. 10/29/2018 Hypertensive Disorder; Diabetes Mellitus; Hyperlipidemia; Degenerative Joint Disease Involving Multiple Joints; Screening for Malignant Neoplasm of Breast; Screening for Malignant Neoplasm of Colon Rashid Bowden MD: [address] [place] [address], Ph. History of Present Illness Note:Coming to discuss lab results. Not taking metformin and glipizide every day.<div>Dry cough since 2 weeks ago. Denies runny nose, nasal congestion, sore throat, sob, wheezing or chest pain.</div> Review of Systems:ROS as noted in the HPI Review of Systems Comprehensive General Adult ROS Reported By: Patient Constitutional: Constitutional: no fever Eyes: Eyes: no vision change ENMT: Ears: no ear pain. Nose: no sinus problems. Mouth/Throat: no sore throat Cardiovascular: Cardiovascular: no chest candida n, no palpitations, no lightheadedness Respiratory: Respiratory: no wheezing, no shortness of breath, cough Gastrointestinal: Gastrointestinal: no abdomin al pain, no nausea, no vomiting, no constipation, no diarrhea Musculoskeletal: Musculoskeletal: no muscle a ches, no swelling in the extremities Integumentary: Skin: no rashes, growths/les ions Neurologic: Neurologic: no loss of consc iousness, no headaches Psychiatric: Psych: no depression, no alc ohol abuse, no anxiety, no suicidal thoughts Endocrine: Endocrine: no fatigue Physical Exam General Adult Exam (male) Reported By: Patient Constitutional: General Appearance: healthy- appearing, obese. Level of Distress: NAD. Ambulation: ambulating normally Psychiatric: Insight: good judgement. Men raquel Status: active and alert, normal mood, normal affect. Orientation: to time, to place, to person. Memory: recent memory normal, remote memory normal Eyes: Lids and Conjunctivae: non-i njected, no discharge ENMT: Ears: TMs clear. Nose: no si nus tenderness, nares non-patent, nasal discharge, post nasal drip. Lips, Teeth, and Gums: no mouth or lip ulcers. Oropharynx: moist mucous membranes, no exudates, erythema Neck: Neck: supple, trachea midlin e. Lymph Nodes: no cervical LAD. Thyroid: no enlargement, non-tender Lungs: Respiratory effort: no dyspn ea. Auscultation: breath sounds normal Cardiovascular: Heart Auscultation: RRR, nor mal S1, normal S2, no murmurs. Neck vessels: no carotid bruits Abdomen: Inspection and Palpation: so ft, non-distended, no tenderness, no guarding, no rebound tenderness, no masses Musculoskeletal:: Motor Strength and Tone: nor mal, normal tone. Joints, Bones, and Muscles: normal movement of all extremities. Extremities: no edema Neurologic: Gait and Station: normal gai t. Cranial Nerves: grossly intact Skin: Inspection and palpation: ; Mass at the level of the R achilles tendon insertion in the heel. Hard, mobile, non tender, 2 cms in diameter approximately
--- OUTSIDE RECORDS SUMMARY | 2019-09-10 10:49 | XMS REPORT | Encounter Summary ---
Author Organization Unknown Address [address] [place] [address] Phone [phone] Care Team Providers Care Kitchen Clerk Name Role Phone Dr. Lorena Ward 3 [phone] Betzy Cruz MD 111 [phone] Reason for Visit other - see typed reason Instructions 1. Upper respiratory infection Zithromax Z-Zack 250 mg tablet infeccin de las vAS respiratorias altas (resfriado): instrucciones de cuidado - [upper respiratory infection (cold): care instructions] Bromfed DM 2 mg-30 mg-10 mg/5 mL oral syrup 2. Exposure to Influenzavirus 3. Body mass index 30+ - obesity aprenda acerca del peso saludable - [l earning about healthy weight] ndice de masa corporal: instruccione s de cuidado - [body mass index: care instructions] 4. Diabetes mellitus 5. Smoker stopping smoking: care instructions advised to quit smoking 6. Vaccine refused by patient Discussion Note: None recorded. Plan of Care Patient Instructions Please return to the office for diabetes bloodwork Reminders Provider Appointments Return to Office on or around 07/07/2019 Margarita Castaneda NP Return to Office on or around 07/21/2019 Margarita Castaneda NP Lab None recorded. Referral None recorded. Procedures None recorded. Surgeries None recorded. Imaging None recorded. Medications Name Start Date aspirin 81 mg tablet,delayed release Take 1 tablet every day by oral route as directed for 90 days. atorvastatin 40 mg tablet Take 1 tablet every day by oral route for 90 days. Basaglar KwikPen U-100 Insulin 100 unit/ mL (3 mL) subcutaneous Inject 25 units every day by subcutaneous route in the morning for 90 days. Bromfed DM 2 mg-30 mg-10 mg/5 mL oral sy rup Take 10 mL every 4-6 hours by oral route as needed for 5 days. bupropion HCl 150 mg tablet,12 hr [...] day by oral route for 90 days. Zithromax Z-Zack 250 mg tablet TAKE 2 TABLETS (500 MG) BY ORAL ROUTE ONCE DAILY FOR 1 DAY THEN 1 TABLET (250 MG) BY ORAL ROUTE ONCE DAILY FOR 4 DAYS Medications Administered None recorded. Vitals Height Weight BMI Blood Pressure 5 ft 1 in 181 lbs 34.2 kg/m2 118/84 mm[Hg] Results Lab Results None recorded. Allergies Code Code System Name Reaction Severity Status Onset NKDA Problems Name Status Onset Date Source Diabetes Mellitus Active 07/31/2018 Hyperlipidemia Active 07/31/2018 Hypertensive Disorder Active 07/31/2018 Procedures Date Name Performed by Section Information not avai lable Vaccine List Vaccine Type influenza, injectable, quadrivalent, pre servative free 05/25/20190.5 mL pneumococcal polysaccharide PPV23 07/31/20180.5 mL Tdap 07/31/20180.5 mL Social History Tobacco Smoking Status Light Tobacco Smoker (1 PPW) Past Encounters 07/07/2019 Upper Respiratory Infection; Exposure to Influenzavirus; Body Mass Index 30+ - Obesity; Diabetes Mellitus; Smoker; Vaccine Refused by Patient Margarita Castaneda, ASSIGNMENT DESK ASSISTANT: [address] [place] [address], Ph. History of Present Illness Upper Respiratory Symptoms Reported By: Patient Upper Respiratory Symptoms: Location: throat. Quality: congested, dry cough, hurts to swallow. Severity: pain level 5/10. Duration: ; 7 days. Onset/Timing: gradual. Context: no foreign travel, sick contact, smoker. Modifying Factors: OTC medication. Associated Symptoms: no sputum production, no shortness of breath, no wheezing, no change in number of pillows needed to sleep at night, no sweats, no fever, no significant weight gain, no significant weight loss, no vomiting, no diarrhea, no rash, no nausea, fatigue, morning cough, sore throat; white sputum, horse voice Note:CLINT Jo translated Review of Systems Comprehensive General Adult ROS Reported By: Patient Constitutional: Constitutional: no fever Eyes: Eyes: no vision change, no i rritation ENMT: Ears: no ear pain. Nose: no nose problems, no sinus problems. Mouth/Throat: sore throat Cardiovascular: Cardiovascular: no chest candida n Respiratory: Respiratory: no wheezing, no shortness of breath, cough Gastrointestinal: Gastrointestinal: no abdomin al pain, no nausea, no vomiting Genitourinary: Genitourinary: no difficulty urinating Musculoskeletal: Musculoskeletal: no muscle a ches, no arthralgias/joint pain Integumentary: Skin: no rashes Neurologic: Neurologic: no weakness, no numbness Psychiatric: Psych: no depression, no anx iety Endocrine: Endocrine: fatigue Hematologic/Lymphatic: Hematologic/Lymphatic no swo llen glands Allergic/Immunologic: Allergy/Immunologic: no sinu s pressure, runny nose Physical Exam General Adult Exam (Female) Reported By: Patient Constitutional: General Appearance: healthy- appearing, well-developed, obese. Level of Distress: mild distress. Ambulation: ambulating normally Psychiatric: Insight: good judgement. Men raquel Status: active and alert, normal affect. Orientation: to time, to place, to person Eyes: Lids and Conjunctivae: non-i njected, no discharge. Pupils: PERRLA. EOM: EOMI. Sclerae: non-icteric. Vision: acuity grossly intact ENMT: Ears: no lesions on external ear, EACs clear, TMs clear, TM mobility normal. Hearing: no hearing loss. Nose: nares patent, no sinus tenderness. Lips, Teeth, and Gums: no mouth or lip ulcers. Oropharynx: moist mucous membranes, no exudates, tonsils not enlarged, erythema; horseness Neck: Neck: supple, FROM. Lymph No rimma: no cervical LAD. Thyroid: no enlargement Lungs: Respiratory effort: no dyspn ea. Percussion: no dullness, flatness, or hyperresonance Cardiovascular: Heart Auscultation: RRR. Pul ses including femoral / pedal: normal throughout Abdomen: Bowel Sounds: normal. Inspec tion and Palpation: soft, non-distended, no tenderness, no CVA tenderness. Liver: non-tender. Spleen: non-tender Musculoskeletal:: Motor Strength and Tone: nor mal motor strength, normal tone. Joints, Bones, and Muscles: normal movement of all extremities. Extremities: no cyanosis, no edema Neurologic: Gait and Station: normal gai t, normal station. Cranial Nerves: grossly intact. Sensation: grossly intact Skin: Inspection and palpation: no rash, good turgor. Nails: normal
--- OUTSIDE RECORDS SUMMARY | 2019-09-10 10:49 | XMS REPORT | Encounter Summary ---
Author Organization Unknown Address [address] [place] [address] Phone [phone] Care Team Providers Care After School Program Director Name Role Phone Dr. Rashid Neumann 3 [phone] Reason for Visit Hyperlipidemia; Diabetes mellitus; Hyper tensive disorder Instructions 1. Hypertensive disorder hydrochlorothiazide 12.5 mg capsule lisinopril 40 mg tablet 2. Diabetes mellitus Basaglar KwikPen U-100 Insulin 100 uni t/mL (3 mL) subcutaneous glipizide 5 mg tablet metformin 1,000 mg tablet HbA1c (hemoglobin A1c), blood 3. Hyperlipidemia colesterol alto: instrucciones de cuid ado - [high cholesterol: care instructions] aspirin 81 mg tablet,delayed release atorvastatin 40 mg tablet CMP, serum or plasma lipid panel, serum 4. Degenerative joint disease involving multiple joints meloxicam 15 mg tablet 5. Screening for malignant neoplasm of b reast MAMMO, screening, digital, bilateral - Ukrainian Speaking Please call patient and schedule him an appointment. 6. Screening for malignant neoplasm of c olon colonoscopy referral - Ukrainian Jordan gauthier Please call patient and schedule her an appointment. Discussion Note: None recorded. Plan of Care Reminders Provider Appointments Return to Office on or around 01/30/2019 Rashid Bowden MD Lab HbA1C (Hemoglobin a1C), Blood 10/29/2018 [facility] CMP, Serum or Plasma 10/29/2018 [facility] Lipid Panel, Serum 10/29/2018 [facility] Referral Colonoscopy Referral 10/29/2018 [facility] Procedures None recorded. Surgeries None recorded. Imaging MAMMO, Screening, Digital, Bilateral 10/29/2018 [facility] [place] Medications Name Start Date aspirin 81 mg [...] BMI Blood Pressure 5 ft 1 in 184 lbs 34.8 kg/m2 (1) 159/94 mm[H g] (2) 143/87 mm[Hg] Lab Results None recorded. Allergies Code Code System Name Reaction Severity Status Onset NKDA Problems Name Status Onset Date Source Diabetes Mellitus Active 07/31/2018 Hyperlipidemia Active 07/31/2018 Hypertensive Disorder Active 07/31/2018 Procedures Date Name Performed by Section Information not avai lable 10/29/2018 MAMMO, Screening, Digital, Bilateral [facility] - [address] [place] [address] (Work Place) Vaccine List Vaccine Type pneumococcal polysaccharide PPV23 07/31/20180.5 mL Tdap 07/31/20180.5 mL Social History Smoking Status Light Tobacco Smoker (1 PPW) Past Encounters 10/29/2018 Hypertensive Disorder; Diabetes Mellitus; Hyperlipidemia; Degenerative Joint Disease Involving Multiple Joints; Screening for Malignant Neoplasm of Breast; Screening for Malignant Neoplasm of Colon Rashid Bowden MD: [address] [place] [address], Ph. History of Present Illness Note:F/u on chronic conditions. Needs refills. Compliant with meds. Non compliant with diet or exercise. Not checking glucose readings or BPs at home. No side effects with meds.<div>Hx of OA in shoulders, wrists, fingers, knees and ankles complaining of persistent pain since a few weeks ago. Denies stiffness, swelling, warmth or erythema.</div> Review of Systems Comprehensive General Adult ROS [...] muscle a ches, no swelling in the extremities, arthralgias/joint pain Integumentary: Skin: no rashes Neurologic: Neurologic: no loss of consc iousness, [...] no murmurs. Neck vessels: no carotid bruits Musculoskeletal:: Motor Strength and Tone: nor mal, normal tone. Joints, Bones, and Muscles: normal movement of all extremities, tenderness. Extremities: no edema Neurologic: Gait and Station: normal gai t. Cranial Nerves: grossly intact Skin: Inspection and palpation: no rash, no lesions
--- OUTSIDE RECORDS SUMMARY | 2019-09-10 10:50 | XMS REPORT | Encounter Summary ---
Author Organization Unknown Address [address] [place] [address] Phone [phone] Care Team Providers Care Applier Name Role Phone Dr. Lorena Ward 3 [phone] Betzy Cruz MD 111 [phone] Reason for Visit Hyperlipidemia; Diabetes mellitus; Hyper tensive disorder Instructions 1. Type II diabetes mellitus uncontrolle d Basaglar KwikPen U-100 Insulin 100 uni t/mL (3 mL) subcutaneous Easy Touch 31 gauge x 5/16" needle glipizide 5 mg tablet metformin 1,000 mg tablet HbA1c (hemoglobin A1c), blood diabetes tipo 2: instrucciones de cuid ado - [type 2 diabetes: care instructions] Blood Glucose Monitoring kit endocrinology referral - Please cont act patient to schedul. Thank you! 2. Influenza vaccination given Fluzone Quad [id number] (PF) 60 mcg (15 mcg x 4)/0.5 mL IM syringe 3. Body mass index 30+ - obesity aprenda acerca del peso saludable - [l earning about healthy weight] ndice de masa corporal: instruccione s de cuidado - [body mass index: care instructions] 4. Hypertensive disorder hydrochlorothiazide 12.5 mg capsule lisinopril 40 mg tablet CBC w/ auto diff CMP, serum or plasma TSH, serum or plasma 5. Hyperlipidemia colesterol alto: instrucciones de cuid ado - [high cholesterol: care instructions] aspirin 81 mg tablet,delayed release atorvastatin 40 mg tablet lipid panel, serum 6. Degenerative joint disease involving multiple joints 7. Obesity learning about healthy weight 8. Screening for malignant neoplasm of c olon gastroenterology referral - Please c ontact patient to schedul. Thank you! Taiwanese-speaking only 9. Nicotine dependence stopping smoking: care instructions advised to quit smoking deciding about using medicines to quit smoking bupropion HCl 150 mg tablet,12 hr sust ained-release(smoking deterrent) DIGITAL EXPERIENCE MANAGER dejar de fumar: instrucciones de cuidado - [stopping smoking: care instructions] 10. Subcutaneous nodule dermatology referral - Please contac t patient to amarilis. Thank you! Taiwanese-speaking only US, lower extremity - Please contact patient to amarilis. Thank you!* uric acid, serum or plasma Discussion Note: None recorded. Plan of Care Reminders Provider Appointments None recorded. Lab HbA1C (Hemoglobin a1C), Blood 05/25/2019 [facility] Lipid Panel, Serum 05/25/2019 [facility] - Laboratory CBC W/ Auto Diff 05/25/2019 [facility] - Laboratory CMP, Serum or Plasma 05/25/2019 [facility] - Laboratory TSH, Serum or Plasma 05/25/2019 [facility] - Laboratory Uric Acid, Serum or Plasma 05/25/2019 [facility] Referral Endocrinology Referral 05/25/2019 Xenia chirinos MD Gastroenterology Referral 05/25/2019 Lonnie Brown MD Dermatology Referral 05/25/2019 Kevon Gutierrez MD Procedures None recorded. Surgeries None recorded. Imaging US, Lower Extremity 05/25/2019 [facility] (Imaging) Medications Name Start Date aspirin 81 mg tablet,delayed release Take 1 tablet every day by oral route as directed for 90 days. atorvastatin 40 mg tablet Take 1 tablet every day by oral route for 90 days. Basaglar KwasifPen U-100 Insulin 100 unit/ mL (3 mL) [...] 1 in 184 lbs 34.8 kg/m2 (1) 165/110 mm[ Hg] (2) 166/98 mm[Hg] Results Lab Results None recorded. Allergies Code Code System Name Reaction Severity Status Onset NKDA Problems Name Status Onset Date Source Diabetes Mellitus Active 07/31/2018 Hyperlipidemia Active 07/31/2018 Hypertensive Disorder Active 07/31/2018 Procedures Date Name Performed by Section Information not avai lable 05/25/2019 , Lower Extremity [facility] ter (Imaging) [address] [place] [address] (Work Place) Vaccine List Vaccine Type influenza, injectable, quadrivalent, pre servative free 05/25/20190.5 mL pneumococcal polysaccharide PPV23 07/31/20180.5 mL Tdap 07/31/20180.5 mL Social History Tobacco Smoking Status Light Tobacco Smoker (1 PPW) Past Encounters 07/07/2019 Upper Respiratory Infection; Exposure to Influenzavirus; Body Mass Index 30+ - Obesity; Diabetes Mellitus; Smoker; Vaccine Refused by Patient Margarita Manas Castaneda, SPECIALIST ICU: [address] [place] [address], Ph. 05/25/2019 Type II Diabetes Mellitus Uncontrolled; Influenza Vaccination Given; Body Mass Index 30+ - Obesity; Hypertensive Disorder; Hyperlipidemia; Degenerative Joint Disease Involving Multiple Joints; Obesity; Screening for Malignant Neoplasm of Colon; Nicotine Dependence; Subcutaneous Nodule Lorena Ward MD: [address] [place] [address], Ph. History of Present Illness Note:53yo female presents for follow-up visit. Pt was last seen by Dr Neumann on 11/11/18 for URI. Pt only speaks Taiwanese, visit translated by DF. Pt has run out of all of her medications before Thanksgiving.<div>Feels that the blood sugar has been high, but hasn't had a meter to check in past 4yrs. Hx of diabetes for past 12yrs. No known complication. Last eye exam 08/2018.</div><div>
</div>< div>Smokes 5-6 cigs/day. Has smoked 40yrs, but was less before, 2 cigs/day.</div ><div>, since 1999. 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
Previously:
F/u on chronic conditions. Needs refills. Compliant with meds. Non compliant with diet or exercise. Not checking glucose readings or BPs at home. No side effects with meds.<div>Hx of OA in shoulders, wrists, fingers, knees and ankles complaining of persistent pain since a few weeks ago. Denies stiffness, swelling, warmth or erythema.</div> Review of Systems:ROS as noted in the [...]
--- OUTSIDE RECORDS SUMMARY | 2019-09-10 10:50 | XMS REPORT | Encounter Summary ---
Author Organization Unknown Address [address] [place] [address] Phone [phone] Care Team Providers Care Road Oiler Name Role Phone Dr. Lorena Ward 3 [phone] Reason for Visit Hyperlipidemia; Diabetes mellitus; Hyper tensive disorder; Telemedicine Visit Instructions 1. Hypertensive disorder hydrochlorothiazide 12.5 mg capsule lisinopril 40 mg tablet aprenda sobre la presin arterial alt a - [learning about high blood pressure] CBC w/ auto diff TSH, serum or plasma 2. Hyperlipidemia colesterol alto: instrucciones de cuid ado - [high cholesterol: care instructions] atorvastatin 40 mg tablet lipid panel, serum 3. Type II diabetes mellitus uncontrolle d glipizide 5 mg tablet metformin 1,000 mg tablet endocrinology referral - Please cont act patient to schedule. Thank you! No Lab results diabetes - A1C education information HbA1c (hemoglobin A1c), blood glucometer blood glucose test strips CMP, serum or plasma microalbumin/creatinine, mass ratio, u rine 4. Degenerative joint disease involving multiple joints meloxicam 15 mg tablet 5. Depression screening Discussion Note: None recorded. Plan of Care Reminders Provider Appointments Return to Office on or around 09/09/2019 Margarita Castaneda NP Lab HbA1C (Hemoglobin a1C), Blood 09/06/2019 [facility] Lipid Panel, Serum 09/06/2019 [facility] - Laboratory CMP, Serum or Plasma 09/06/2019 [facility] - Laboratory CBC W/ Auto Diff 09/06/2019 [facility] - Laboratory TSH, Serum or Plasma 09/06/2019 [facility] ical - Laboratory Microalbumin/creatinine, Mass Ratio, Urine 09/05 [facility] - Laboratory Referral Endocrinology Referral 09/06/2019 Xenia chirinos MD Procedures None recorded. Surgeries None recorded. [...] day by oral route for 90 days. Medications Administered None recorded. Vitals Height 5 ft 1 in Results Lab Results None recorded. Allergies Code [...] Light Tobacco Smoker (1 PPW) Past Encounters 09/06/2019 Hypertensive Disorder; Hyperlipidemia; Type II Diabetes Mellitus Uncontrolled; Degenerative Joint Disease Involving Multiple Joints; Depression Screening Margarita Castaneda SPIRITUAL CARE COORDINATOR: [address] [facility], [address], [place] [address], Ph. History of Present Illness Note:I confirm that I received verbal consent from the patient for the virtual visit.
This telemedicine encounter was performed using live {{video and audio*|audio only}}.
CLINT Jo translated.
F/u on chronic conditions. Needs refills. Compliant with meds. Non compliant with diet or exercise. No side effects with meds, patient states she feels fine. Not checking BPs at home (does not have a machine). Not checking glucose readings (never picked up a glucometer ordered in May). She never started on insulin pen ordered in May 2019 (last HgA1c 12.4 in October 2018). Hx of OA in shoulders, wrists, fingers, knees and ankles complaining of persistent pain. Denies stiffness, swelling, warmth or erythema. Review of Systems:ROS as noted in the HPI Review of Systems Comprehensive General Adult ROS Reported By: Patient Constitutional: Constitutional: no fever Cardiovascular: Cardiovascular: no chest candida n Respiratory: Respiratory: no cough, no wh eezing, no shortness of breath Gastrointestinal: Gastrointestinal: no abdomin al pain, no nausea, no vomiting Musculoskeletal: Musculoskeletal: arthralgias /joint pain Psychiatric: Psych: no depression, no anx iety Endocrine: Endocrine: no fatigue Physical Exam Musculoskeletal and Joint Ex am, Telemedicine/Virtual Visit Reported By: Patient Musculoskeletal System: Right Elbow: good ROM. Left Elbow: good ROM. Bilateral Hands no acute symptoms. Right Hand: good finger ROM. Left Hand: good finger ROM Constitutional: General Appearance: obese. L evel of Distress: NAD. Ambulation: ambulating normally Psychiatric: Insight: good judgement. Men raquel Status: active and alert, normal mood, normal affect. Orientation: to time, to place, to person. Memory: recent memory normal, remote memory normal Head: Head: normocephalic, atrauma tic Eyes: Lids and Conjunctivae: non-i njected. EOM: EOMI Lungs: Respiratory effort: no dyspn ea Neurologic: Cranial Nerves: grossly inta ct. Coordination and Cerebellum: no tremor
--- OUTSIDE RECORDS SUMMARY | 2019-09-10 10:50 | XMS REPORT | Encounter Summary ---
Author Organization Unknown Address [address] [place] [address] Phone [phone] Care Team Providers Care Table Runner Name Role Phone Dr. Lorena Ward 3 [phone] Reason for Visit lab only visit Instructions None recorded. Discussion Note: None recorded. Patient educational handouts: No information available. Plan of Care Reminders Provider Appointments Return to Office on or around 09/09/2019 Margarita Castaneda NP Lab None recorded. Referral [...] days. Medications Administered None recorded. Vitals Height Weight BMI Blood Pressure 5 ft 1 in 172.6 lbs 32.6 kg/m2 (1) 148/96 mm[H g] (2) 149/92 mm[Hg] Results Lab Results None recorded. Allergies [...] Light Tobacco Smoker (1 PPW) Past Encounters 09/07/2019 Margarita Castaneda MACHINERY ENGINEER: [address], [address], [place] [address], Ph. 09/06/2019 Hypertensive Disorder; Hyperlipidemia; Type II Diabetes Mellitus Uncontrolled; Degenerative Joint Disease Involving Multiple Joints; Depression Screening Margarita Castaneda MACHINERY ENGINEER: [address], [address], [place] [address], Ph. History of Present Illness None recorded. Review of Systems None recorded. Physical Exam None recorded.
[2019-09-10] MEDS ORDERED: SODIUM CHLORIDE 0.9% 1000ML 1,000 ML IV STA (11:23)
[2019-09-10] MEDS ORDERED: INSULIN REGULAR, HUMAN 100 UNIT/1 ML 3ML VIAL IV ONE (11:30)
--- NOTE | 2019-09-10 11:57 | NUR ---
Pt roomed in ER 9. Pt AAOx4. RR even and unlabored. NAD noted. NIBP and pulse ox applied to pt. Vitals stable at this time. Pt reports being out of insulin x3 months. States she ran out and her PCP refilled her script but states didnt cherry picker operator her rx due to "this whole coronavirus stuff." Pt educated on importance of disease management. Pt verbalzied understanding. Bed locked in lowest position. Call light in reach.
[2019-09-10 12:15] LABS: BASOPHILS % 0.4 % (0.0-1.0); EOSINOPHILS # (AUTO) 0.1 (0.0-0.4); EOSINOPHILS % 0.7 % (0.0-6.0); HEMATOCRIT 49.2 % (34.2-44.1); HEMOGLOBIN 16.7 g/dL (12.0-16.0); LYMPHOCYTES # (AUTO) 2.1 (1.0-3.2); LYMPHOCYTES % 28.6 % (18.0-39.1); MEAN CORPUSCULAR HGB CONC 33.9 g/dL (31-35); MEAN CORPUSCULAR VOLUME 94.3 fL (81-99); MONOCYTES # (AUTO) 0.3 (0.2-0.8); MONOCYTES % 3.8 % (4.4-11.3); NEUTROPHILS # (AUTO) 4.8 (2.1-6.9); PLATELET COUNT 171 x10e3/uL (140-360); RED BLOOD COUNT 5.22 x10e6/uL (3.6-5.1); RED CELL DISTRIBUTION WIDTH 13.3 % (11.7-14.4)
[2019-09-10 12:23] LABS: BILIRUBIN,URINE NEGATIVE (NEGATIVE); CLARITY,URINE CLEAR (CLEAR); COLOR,URINE YELLOW (YELLOW); KETONES,URINE 1+ (NEGATIVE); LEUKOCYTE ESTERASE ,URINE NEGATIVE (NEGATIVE); NITRITE,URINE NEGATIVE (NEGATIVE); PROTEIN,URINE DIPSTICK NEGATIVE (NEGATIVE); URINE UROBILINOGEN 0.2 mg/dL (0.2 - 1)
[2019-09-10 12:34] LABS: BACTERIA,URINE MODERATE /HPF; EPITHELIAL CELLS,URINE MODERATE /LPF; RBC,URINE 0-5 /HPF (0-5)
[2019-09-10 12:39] LABS: ALBUMIN 3.6 g/dL (3.5-5.0); ANION GAP 17.8 mmol/L (8-16); CREATININE, SERUM 1.23 mg/dL (0.57-1.11); MAGNESIUM 1.5 MG/DL (1.3-2.1); POTASSIUM 3.8 mmol/L (3.5-5.1)
[2019-09-10 12:48] LABS: CREATINE KINASE MB 1.3 ng/mL (0-5.0)
[2019-09-10] MEDS ORDERED: SODIUM CHLORIDE 0.9% 1000ML 1,000 ML IV ONE (13:30)
[2019-09-10 14:41] VITALS: BP 135/82
== END 2019-09-10 14:42 | disposition home or self-care (01) ==
LOC: ER 10:45
DX: E11.65 Type 2 diabetes mellitus with hyperglycemia (principal); I10 Essential (primary) hypertension; E78.5 Hyperlipidemia, unspecified; F17.210 Nicotine dependence, cigarettes, uncomplicated
CPT/HCPCS: 36415; 80053; 81001; 82550; 82553; 82948; 83735; 84484; 85025; 87086; 99284; J1817; J7030

== ENCOUNTER 2020-04-20 11:16 | Inpatient (IN) | payer SELFPAY ==
[~2020-04-20] VITALS: Ht 154.9 cm; Wt 78.0 kg
[2020-04-20] MEDS ORDERED: MORPHINE SULFATE INJ 4 MG/ML INJ 1ML IV STA (11:31)
[2020-04-20] MEDS ORDERED: ONDANSETRON HCL INJ 2MG/ML 2ML 2 MG/ML VIAL IV STA (11:31)
[2020-04-20] MEDS ORDERED: SODIUM CHLORIDE 0.9% 1000ML 1,000 ML IV STA (11:31)
[2020-04-20] MEDS ORDERED: ONDANSETRON HCL INJ 2MG/ML 2ML 2 MG/ML VIAL ONE (11:50)
[2020-04-20] MEDS ORDERED: PIPER-TAZ 3.375 GM 50 ML ONE (11:50)
[2020-04-20 12:00] LABS: BASOPHILS # (AUTO) 0.1 (0.0-0.1); BASOPHILS % 0.4 % (0.0-1.0); EOSINOPHILS % 0.1 % (0.0-6.0); HEMATOCRIT 49.7 % (34.2-44.1); HEMOGLOBIN 16.2 g/dL (12.0-16.0); LYMPHOCYTES # (AUTO) 1.2 (1.0-3.2); LYMPHOCYTES % 8.2 % (18.0-39.1); MEAN CORPUSCULAR HEMOGLOBIN 31.6 pg (28-32); MEAN CORPUSCULAR HGB CONC 32.6 g/dL (31-35); MEAN CORPUSCULAR VOLUME 96.9 fL (81-99); MONOCYTES # (AUTO) 0.5 (0.2-0.8); MONOCYTES % 3.9 % (4.4-11.3); PLATELET COUNT 348 x10e3/uL (140-360); RED BLOOD COUNT 5.13 x10e6/uL (3.6-5.1); RED CELL DISTRIBUTION WIDTH 13.8 % (11.7-14.4)
[2020-04-20] MEDS ORDERED: PIPER-TAZ 3.375 GM 50 ML IV SCH (12:00)
[2020-04-20 12:09] LABS: ABG HCO3 4 mmol/L (22-26); ABG PCO2 11 mmHg (35-45); ABG PH 7.19 (7.35-7.45); ABG PO2 132 mmHg (80-105)
[2020-04-20 12:28] LABS: ALBUMIN 3.2 g/dL (3.5-5.0); ALBUMIN/GLOBULIN RATIO 0.6 (0.8-2.0); ANION GAP 37.1 mmol/L (8-16); CALCIUM 9.7 mg/dL (8.4-10.2); POTASSIUM 5.1 mmol/L (3.5-5.1)
[2020-04-20] MEDS ORDERED: SODIUM CHLORIDE 0.9% 1000ML 1,000 ML IV SCH (12:30)
[2020-04-20] MEDS ORDERED: INSULIN REGULAR, HUMAN 3ML VL 100 UNIT in SODIUM CHLORIDE 0.9% 100 ML 99 ML IV SCH ×2 (12:30)
[2020-04-20] MEDS ORDERED: SODIUM CHLORIDE 0.9% 1000ML 1,000 ML ONE (12:34)
[2020-04-20 12:43] LABS: CREATININE, SERUM 2.16 mg/dL (0.57-1.11)
[2020-04-20] MEDS ORDERED: POTASSIUM CHLORIDE 20MEQ/100ML 200 ML IV PRN (12:45)
[2020-04-20] MEDS ORDERED: INSULIN REGULAR, HUMAN 3ML VL 300 UNIT in SODIUM CHLORIDE 0.9% 300 ML IV SCH ×2 (12:45)
[2020-04-20] MEDS ORDERED: MAGNESIUM SULF 1GRAM/DEXTROSE 100 ML IV PRN (12:45)
[2020-04-20] MEDS: SODIUM CHLORIDE 0.9% 1000ML 1,000 ML IV SCH ×3 (12:54→21:21)
[2020-04-20] MEDS ORDERED: INSULIN REGULAR, HUMAN 3ML VL 100 UNIT in SODIUM CHLORIDE 0.9% 99 ML IV SCH ×2 (13:00)
[2020-04-20] MEDS: INSULIN REGULAR, HUMAN 3ML VL 100 UNIT in SODIUM CHLORIDE 0.9% 99 ML IV SCH ×4 (13:00→23:00)
[2020-04-20] MEDS: DEXTROSE 5%/0.45% SOD CHL 1,000 ML IV SCH ×2 (14:45→15:20)
[2020-04-20] MEDS ORDERED: ACETAMINOPHEN 325 MG TAB PO PRN (15:30)
[2020-04-20 15:59] LABS: ANION GAP 28.3 mmol/L (8-16); CALCIUM 8.5 mg/dL (8.4-10.2); CREATININE, SERUM 1.73 mg/dL (0.57-1.11); MAGNESIUM 1.8 MG/DL (1.3-2.1); POTASSIUM 4.3 mmol/L (3.5-5.1)
[2020-04-20 18:37] VITALS: BP 101/60
[2020-04-20 18:38] VITALS: BP 101/60
[2020-04-20 18:39] VITALS: BP 101/60
[2020-04-20] MEDS: CEFAZOLIN SOD 1 GM/NS 50ML 50 ML IV SCH (18:56)
[2020-04-20 19:56] VITALS: BP 107/67
[2020-04-20] MEDS: ONDANSETRON HCL INJ 2MG/ML 2ML 2 MG/ML VIAL IV PRN (19:56)
[2020-04-20 20:00] VITALS: BP 107/70
[2020-04-20 20:47] LABS: ANION GAP 16.5 mmol/L (8-16); CALCIUM 8.4 mg/dL (8.4-10.2); CREATININE, SERUM 1.47 mg/dL (0.57-1.11); MAGNESIUM 1.5 MG/DL (1.3-2.1); POTASSIUM 3.5 mmol/L (3.5-5.1)
[2020-04-20 23:44] VITALS: BP 113/69
[2020-04-21] MEDS: CEFAZOLIN SOD 1 GM/NS 50ML 50 ML IV SCH ×4 (00:32→18:13)
[2020-04-21] MEDS: DEXTROSE 5%/0.45% SOD CHL 1,000 ML IV SCH ×2 (00:37→08:01)
[2020-04-21 00:49] LABS: ANION GAP 12.3 mmol/L (8-16); CALCIUM 8.5 mg/dL (8.4-10.2); CREATININE, SERUM 1.14 mg/dL (0.57-1.11); MAGNESIUM 1.5 MG/DL (1.3-2.1); POTASSIUM 3.3 mmol/L (3.5-5.1)
[2020-04-21 03:51] VITALS: BP 106/54
[2020-04-21 04:41] LABS: BASOPHILS % 0.4 % (0.0-1.0); EOSINOPHILS % 0.2 % (0.0-6.0); HEMATOCRIT 39.1 % (34.2-44.1); HEMOGLOBIN 13.1 g/dL (12.0-16.0); LYMPHOCYTES # (AUTO) 1.8 (1.0-3.2); LYMPHOCYTES % 15.6 % (18.0-39.1); MEAN CORPUSCULAR HGB CONC 33.5 g/dL (31-35); MEAN CORPUSCULAR VOLUME 92.7 fL (81-99); MONOCYTES # (AUTO) 0.7 (0.2-0.8); MONOCYTES % 5.7 % (4.4-11.3); NEUTROPHILS # (AUTO) 8.8 (2.1-6.9); NEUTROPHILS % 77.7 % (38.7-80.0); PLATELET COUNT 257 x10e3/uL (140-360); RED BLOOD COUNT 4.22 x10e6/uL (3.6-5.1); RED CELL DISTRIBUTION WIDTH 13.9 % (11.7-14.4)
[2020-04-21] MEDS: SODIUM CHLORIDE 0.9% 1000ML 1,000 ML IV SCH ×5 (04:45→19:58)
[2020-04-21 05:03] LABS: ANION GAP 12.1 mmol/L (8-16); BLOOD UREA NITROGEN 16 mg/dL (7-26); BUN/CREATININE RATIO 17 (6-25); CALCIUM 8.4 mg/dL (8.4-10.2); CARBON DIOXIDE 17 mmol/L (22-29); CHLORIDE 111 mmol/L (98-107); CREATININE, SERUM 0.96 mg/dL (0.57-1.11); EST GLOMERULAR FILTRATION RATE > 60 ML/MIN (60-); GLUCOSE 84 mg/dL (74-118); MAGNESIUM 1.4 MG/DL (1.3-2.1); POTASSIUM 3.1 mmol/L (3.5-5.1); SODIUM 137 mmol/L (136-145)
[2020-04-21 09:17] LABS: BLOOD UREA NITROGEN 16 mg/dL (7-26); BUN/CREATININE RATIO 17 (6-25); CALCIUM 8.4 mg/dL (8.4-10.2); CARBON DIOXIDE 17 mmol/L (22-29); CHLORIDE 109 mmol/L (98-107); CREATININE, SERUM 0.92 mg/dL (0.57-1.11); EST GLOMERULAR FILTRATION RATE > 60 ML/MIN (60-); GLUCOSE 108 mg/dL (74-118); MAGNESIUM 1.5 MG/DL (1.3-2.1); SODIUM 135 mmol/L (136-145)
[2020-04-21] MEDS: MORPHINE SULFATE INJ 4 MG/ML INJ 1ML IV PRN ×2 (09:55→21:00)
[2020-04-21] MEDS: INSULIN REGULAR, HUMAN 3ML VL 100 UNIT in SODIUM CHLORIDE 0.9% 99 ML IV SCH ×2 (10:12)
[2020-04-21 12:00] VITALS: BP 144/77
[2020-04-21] MEDS ORDERED: SODIUM CHLORIDE 0.9% 250ML 250 ML ONE (13:41)
[2020-04-21 14:17] LABS: ANION GAP 9.1 mmol/L (8-16); BLOOD UREA NITROGEN 13 mg/dL (7-26); BUN/CREATININE RATIO 15 (6-25); CALCIUM 8.3 mg/dL (8.4-10.2); CARBON DIOXIDE 21 mmol/L (22-29); CHLORIDE 108 mmol/L (98-107); CREATININE, SERUM 0.86 mg/dL (0.57-1.11); EST GLOMERULAR FILTRATION RATE > 60 ML/MIN (60-); GLUCOSE 79 mg/dL (74-118); POTASSIUM 3.1 mmol/L (3.5-5.1); SODIUM 135 mmol/L (136-145)
[2020-04-21 15:14] LABS: THYROID STIMULATING HORMONE 1.381 uIU/mL (0.350-4.940)
[2020-04-21] MEDS: INSULIN LISPRO 100 UNIT/1 ML 3ML VIAL SQ SCH ×3 (16:45→21:28)
[2020-04-21 17:00] VITALS: BP 95/61
[2020-04-21 18:13] LABS: ANION GAP 12.6 mmol/L (8-16); BLOOD UREA NITROGEN 12 mg/dL (7-26); BUN/CREATININE RATIO 15 (6-25); CARBON DIOXIDE 16 mmol/L (22-29); CHLORIDE 107 mmol/L (98-107); CREATININE, SERUM 0.82 mg/dL (0.57-1.11); EST GLOMERULAR FILTRATION RATE > 60 ML/MIN (60-); GLUCOSE 265 mg/dL (74-118); POTASSIUM 3.6 mmol/L (3.5-5.1); SODIUM 132 mmol/L (136-145)
[2020-04-21 20:00] VITALS: BP 131/69
[2020-04-21] MEDS ORDERED: INSULIN GLARGINE 100 UNITS/ML VIAL SQ SCH (21:00)
[2020-04-21 21:29] VITALS: BP 131/69
[2020-04-22] VITALS (8 sets, daily range): BP systolic 84–128; BP diastolic 48–88
[2020-04-22] MEDS: CEFAZOLIN SOD 1 GM/NS 50ML 50 ML IV SCH ×3 (00:05→12:53)
[2020-04-22] MEDS: SODIUM CHLORIDE 0.9% 1000ML 1,000 ML IV SCH ×4 (00:08→12:45)
[2020-04-22] MEDS: DEXTROSE 5%/0.45% SOD CHL 1,000 ML IV SCH ×2 (04:15→14:45)
[2020-04-22 05:43] LABS: BASOPHILS % 0.4 % (0.0-1.0); EOSINOPHILS % 0.6 % (0.0-6.0); HEMATOCRIT 36.6 % (34.2-44.1); HEMOGLOBIN 12.4 g/dL (12.0-16.0); LYMPHOCYTES # (AUTO) 1.3 (1.0-3.2); MEAN CORPUSCULAR HEMOGLOBIN 31.5 pg (28-32); MEAN CORPUSCULAR HGB CONC 33.9 g/dL (31-35); MEAN CORPUSCULAR VOLUME 92.9 fL (81-99); MONOCYTES # (AUTO) 0.5 (0.2-0.8); MONOCYTES % 7.2 % (4.4-11.3); NEUTROPHILS % 72.4 % (38.7-80.0); PLATELET COUNT 187 x10e3/uL (140-360); RED BLOOD COUNT 3.94 x10e6/uL (3.6-5.1); RED CELL DISTRIBUTION WIDTH 13.6 % (11.7-14.4)
[2020-04-22 06:09] LABS: CARBON DIOXIDE 16 mmol/L (22-29); CHLORIDE 105 mmol/L (98-107); POTASSIUM 3.9 mmol/L (3.5-5.1); SODIUM 131 mmol/L (136-145)
[2020-04-22 06:10] LABS: ANION GAP 13.9 mmol/L (8-16); BLOOD UREA NITROGEN 7 mg/dL (7-26); BUN/CREATININE RATIO 9 (6-25); CALCIUM 7.8 mg/dL (8.4-10.2); CREATININE, SERUM 0.75 mg/dL (0.57-1.11); EST GLOMERULAR FILTRATION RATE > 60 ML/MIN (60-); GLUCOSE 374 mg/dL (74-118)
[2020-04-22] MEDS: INSULIN LISPRO 100 UNIT/1 ML 3ML VIAL SQ SCH ×7 (07:30→19:56)
[2020-04-22] MEDS: MORPHINE SULFATE INJ 4 MG/ML INJ 1ML IV PRN ×2 (08:35→18:11)
[2020-04-22] MEDS: VANCOMYCIN 1GM/NS 250 ML 250 ML IV SCH (14:51)
[2020-04-22] MEDS: ONDANSETRON HCL INJ 2MG/ML 2ML 2 MG/ML VIAL IV PRN (18:11)
[2020-04-22] MEDS: SODIUM CHLORIDE 0.45% 1,000 ML IV SCH (18:29)
[2020-04-22] MEDS ORDERED: INSULIN GLARGINE 100 UNITS/ML VIAL SQ SCH (21:00)
[2020-04-23] VITALS (8 sets, daily range): BP systolic 89–120; BP diastolic 63–81
[2020-04-23] MEDS: MORPHINE SULFATE INJ 4 MG/ML INJ 1ML IV PRN ×4 (00:22→22:57)
[2020-04-23] MEDS: VANCOMYCIN 1GM/NS 250 ML 250 ML IV SCH ×2 (01:52→14:00)
[2020-04-23] MEDS: SODIUM CHLORIDE 0.45% 1,000 ML IV SCH ×3 (05:30→17:55)
[2020-04-23] MEDS: INSULIN LISPRO 100 UNIT/1 ML 3ML VIAL SQ SCH ×7 (07:30→20:04)
[2020-04-23] MEDS ORDERED: INSULIN GLARGINE 100 UNITS/ML VIAL SQ SCH (21:00)
[2020-04-24] VITALS (8 sets, daily range): BP systolic 109–123; BP diastolic 64–80
[2020-04-24] MEDS: VANCOMYCIN 1GM/NS 250 ML 250 ML IV SCH ×2 (03:26→12:45)
[2020-04-24] MEDS: SODIUM CHLORIDE 0.45% 1,000 ML IV SCH ×2 (06:30→17:51)
[2020-04-24] MEDS: INSULIN LISPRO 100 UNIT/1 ML 3ML VIAL SQ SCH ×7 (09:47→20:09)
[2020-04-24] MEDS: MORPHINE SULFATE INJ 4 MG/ML INJ 1ML IV PRN (12:50)
[2020-04-24] MEDS ORDERED: ONDANSETRON HCL 4 MG ORAL DISINTEGRATING TAB PO PRN (13:45)
[2020-04-24] MEDS ORDERED: INSULIN GLARGINE 100 UNITS/ML VIAL SQ SCH (21:00)
[2020-04-25] VITALS: BP 130/71
[2020-04-25] MEDS: VANCOMYCIN 1GM/NS 250 ML 250 ML IV SCH ×2 (01:41→12:48)
[2020-04-25 04:00] VITALS: BP 128/87
[2020-04-25 08:29] VITALS: BP 130/90
[2020-04-25] MEDS: SODIUM CHLORIDE 0.45% 1,000 ML IV SCH (09:33)
[2020-04-25] MEDS: INSULIN LISPRO 100 UNIT/1 ML 3ML VIAL SQ SCH ×4 (09:33→12:54)
[2020-04-25 12:14] VITALS: BP 125/80
[2020-04-25] MEDS ORDERED: DOXYCYCLINE HY100 MG PO (14:25)
[2020-04-25] MEDS ORDERED: NOVOLIN N100 UNIT/1 SC (14:28)
[2020-04-25] MEDS ORDERED: HUMULIN-R100 UNITS/ SC (14:29)
== END 2020-04-25 15:07 | disposition home or self-care (01) | DRG 871 ==
LOC: ER 11:36 → ERHOLD 13:13 → IMCU 14:11 → MED/SURG2 04-23 18:46
PROVIDERS: ADMIT Internal Medicine; ATTEND Internal Medicine
DX: A41.9 Sepsis, unspecified organism (principal); E11.10 Type 2 diabetes mellitus with ketoacidosis without coma; E87.2 Acidosis; E87.1 Hypo-osmolality and hyponatremia; N17.9 Acute kidney failure, unspecified; K86.1 Other chronic pancreatitis; L03.317 Cellulitis of buttock; K80.20 Calculus of gallbladder without cholecystitis without obstruction; I10 Essential (primary) hypertension; E78.5 Hyperlipidemia, unspecified; E11.42 Type 2 diabetes mellitus with diabetic polyneuropathy; R65.20 Severe sepsis without septic shock
CPT/HCPCS: 36415; 36600; 74176; 80048; 80053; 80202; 82805; 82948; 83036; 83605; 83735; 84439; 84443; 85025; 87040; 87071; 87075; 87205; 93005; 96360; 96372; 99251; 99284; J0690; J1815; J1817; J2270; J2405; J2543; J3370; J3475; J3480; J7030; J7050; U0002

== ENCOUNTER 2020-06-15 10:34 | Emergency (ER) | payer BC, OTHER ==
[~2020-06-15] VITALS: Ht 154.9 cm; Wt 78.0 kg
[~2020-06-15 10:34] MED LIST: DOXYCYCLINE HY100 MG PO; HUMULIN-R100 UNITS/ SC; NOVOLIN N100 UNIT/1 SC
[2020-06-15] MEDS: SODIUM CHLORIDE 0.9% 1000ML 1,000 ML IV STA (11:11)
[2020-06-15 11:19] LABS: BASOPHILS % 0.5 % (0.0-1.0); EOSINOPHILS # (AUTO) 0.2 (0.0-0.4); EOSINOPHILS % 3.6 % (0.0-6.0); HEMATOCRIT 44.5 % (34.2-44.1); HEMOGLOBIN 14.9 g/dL (12.0-16.0); LYMPHOCYTES # (AUTO) 1.9 (1.0-3.2); LYMPHOCYTES % 31.9 % (18.0-39.1); MEAN CORPUSCULAR HEMOGLOBIN 31.2 pg (28-32); MEAN CORPUSCULAR HGB CONC 33.5 g/dL (31-35); MEAN CORPUSCULAR VOLUME 93.1 fL (81-99); MONOCYTES # (AUTO) 0.2 (0.2-0.8); MONOCYTES % 2.6 % (4.4-11.3); NEUTROPHILS # (AUTO) 3.7 (2.1-6.9); NEUTROPHILS % 61.1 % (38.7-80.0); PLATELET COUNT 221 x10e3/uL (140-360); RED BLOOD COUNT 4.78 x10e6/uL (3.6-5.1); RED CELL DISTRIBUTION WIDTH 12.4 % (11.7-14.4)
[2020-06-15] MEDS: KETOROLAC TROMETHAMINE 30 MG/ML VIAL IV STA (11:26)
[2020-06-15 11:27] LABS: ALBUMIN 3.6 g/dL (3.5-5.0); ALBUMIN/GLOBULIN RATIO 0.9 (0.8-2.0); ANION GAP 15.8 mmol/L (8-16); CREATININE, SERUM 1.02 mg/dL (0.57-1.11); POTASSIUM 3.8 mmol/L (3.5-5.1)
[2020-06-15] MEDS: ONDANSETRON HCL INJ 2MG/ML 2ML 2 MG/ML VIAL IV STA (11:27)
[2020-06-15] MEDS ORDERED: SODIUM CHLORIDE 0.9% 50ML 50 ML ONE (12:19)
[2020-06-15] MEDS ORDERED: IOPAMIDOL 370 MG/ML 200 ML INFUS..BTL INJ ONE (12:19)
[2020-06-15 13:25] LABS: CLARITY,URINE CLEAR (CLEAR); COLOR,URINE YELLOW (YELLOW); KETONES,URINE NEGATIVE (NEGATIVE); LEUKOCYTE ESTERASE ,URINE SMALL (NEGATIVE); NITRITE,URINE NEGATIVE (NEGATIVE); PROTEIN,URINE DIPSTICK NEGATIVE (NEGATIVE); URINE UROBILINOGEN 0.2 mg/dL (0.2 - 1)
[2020-06-15 13:30] LABS: BACTERIA,URINE FEW /HPF; EPITHELIAL CELLS,URINE FEW /LPF; RBC,URINE 0-5 /HPF (0-5)
[2020-06-15] MEDS ORDERED: CLINDAMYCIN HC150 MG PO (14:12)
[2020-06-15] MEDS ORDERED: ULTRAM 50MG50 MG PO (14:12)
== END 2020-06-15 16:11 | disposition home or self-care (01) ==
LOC: ER 11:07
DX: R10.31 Right lower quadrant pain (principal); M54.5 Low back pain; E11.65 Type 2 diabetes mellitus with hyperglycemia; I10 Essential (primary) hypertension; E78.5 Hyperlipidemia, unspecified
CPT/HCPCS: 36415; 71045; 74177; 80053; 81001; 83690; 85025; 99284; J1885; J2405; J7030; Q9967

== ENCOUNTER 2020-07-14 13:14 | Emergency (ER) | payer BC, OTHER ==
[~2020-07-14] VITALS: Ht 154.9 cm; Wt 81.6 kg
[~2020-07-14 13:14] MED LIST changes: +CLINDAMYCIN HC150 MG PO; +ULTRAM 50MG50 MG PO
[2020-07-14 13:58] LABS: BASOPHILS % 0.3 % (0.0-1.0); EOSINOPHILS # (AUTO) 0.2 (0.0-0.4); EOSINOPHILS % 3.2 % (0.0-6.0); HEMATOCRIT 41.7 % (34.2-44.1); HEMOGLOBIN 14.6 g/dL (12.0-16.0); MEAN CORPUSCULAR HEMOGLOBIN 31.1 pg (28-32); MEAN CORPUSCULAR VOLUME 88.7 fL (81-99); MONOCYTES # (AUTO) 0.2 (0.2-0.8); MONOCYTES % 2.9 % (4.4-11.3); NEUTROPHILS # (AUTO) 4.4 (2.1-6.9); NEUTROPHILS % 64.3 % (38.7-80.0); PLATELET COUNT 224 x10e3/uL (140-360); RED CELL DISTRIBUTION WIDTH 12.2 % (11.7-14.4)
[2020-07-14 14:01] LABS: CLARITY,URINE CLEAR (CLEAR); COLOR,URINE YELLOW (YELLOW); LEUKOCYTE ESTERASE ,URINE TRACE (NEGATIVE); NITRITE,URINE NEGATIVE (NEGATIVE); PROTEIN,URINE DIPSTICK TRACE (NEGATIVE)
[2020-07-14 14:02] LABS: KETONES,URINE NEGATIVE (NEGATIVE); URINE UROBILINOGEN 0.2 mg/dL (0.2 - 1)
[2020-07-14 14:14] LABS: BACTERIA,URINE RARE /HPF; EPITHELIAL CELLS,URINE FEW /LPF; RBC,URINE 0-5 /HPF (0-5); WBC,URINE (MAN) 0-5 /HPF (0-5)
[2020-07-14 14:19] LABS: ALANINE AMINOTRANSFERASE 9 IU/L (0-55); ALBUMIN 3.3 g/dL (3.5-5.0); ALBUMIN/GLOBULIN RATIO 0.8 (0.8-2.0); ALKALINE PHOSPHATASE 67 IU/L (40-150); ANION GAP 12.2 mmol/L (8-16); BLOOD UREA NITROGEN 18 mg/dL (7-26); BUN/CREATININE RATIO 20 (6-25); CARBON DIOXIDE 24 mmol/L (22-29); CHLORIDE 106 mmol/L (98-107); CREATINE KINASE 73 IU/L (29-168); CREATININE, SERUM 0.92 mg/dL (0.57-1.11); EST GLOMERULAR FILTRATION RATE > 60 ML/MIN (60-); GLUCOSE 191 mg/dL (74-118); POTASSIUM 3.2 mmol/L (3.5-5.1); SODIUM 139 mmol/L (136-145)
[2020-07-14] MEDS ORDERED: ULTRAM50 MG PO (14:24)
[2020-07-14] MEDS ORDERED: CLINDAMYCIN HC150 MG PO (14:24)
[2020-07-14] MEDS ORDERED: LIDOCAINE HCL 4% 50 ML BTL TOP ONE (15:15)
[2020-07-14] MEDS ORDERED: LIDOCAINE 4% PATCH TP ONE (15:30)
== END 2020-07-14 15:40 | disposition home or self-care (01) ==
LOC: ER 13:40
DX: R10.31 Right lower quadrant pain (principal); I10 Essential (primary) hypertension; E11.65 Type 2 diabetes mellitus with hyperglycemia; E78.5 Hyperlipidemia, unspecified
CPT/HCPCS: 36415; 80053; 81001; 82550; 82553; 83690; 84484; 85025; 99283